=== PATIENT | female | born 1930 | race Caucasian/White ===

== ENCOUNTER 2020-01-14 21:00 | Observation (INO) | payer MEDICARE, BC ==
[2020-01-14] MEDS ORDERED: SODIUM CHLORIDE 0.9% 1,000 ML IV STA (21:10)
--- NOTE | 2020-01-14 21:11 | ED ---
Altered Mental Status HPI - General Stated Complaint: Confusion Time Seen by Provider: 01/14/20 21:07 Source: RN notes reviewed, old records reviewed, Caregiver Mode of arrival: EMS Limitations: altered mental status - History of Present Illness Initial Comments: This is a 9-year-old female recurrent DF for evaluation of increasing dementia altered mental status not acting appropriately difficulty at home with medications. Daughter states patient is not acting appropriately becoming more aggressive affect both her and her patient herself. Refusing to take medications, not acting appropriately. She appears to be getting progressively worse MD Complaint: altered mental status, confusion, other (agression) -: unknown Severity: moderate Consistency of Symptoms: waxing and waning, getting worse Context: history of similar presentation Associated Symptoms: denies other symptoms - Related Data Home Medications Medication Instructions Recorded Confirmed Aspirin EC [Ecotrin Low Dose] 81 mg PO HS 01/14/20 01/14/20 Atorvastatin [Lipitor] 40 mg PO Q48H 01/14/20 01/14/20 DULoxetine HCL [Cymbalta] 30 mg PO DAILY 01/14/20 01/14/20 Levothyroxine Sodium [Synthroid] 50 mcg PO DAILY 01/14/20 01/14/20 Omeprazole Magnesium [PriLOSEC OTC] 20 mg PO HS 01/14/20 01/14/20 Spironolactone 25 mg PO DAILY 01/14/20 01/14/20 Timolol 0.5% Ophth Soln [Timoptic 1 drop BOTH EYES DAILY 01/14/20 01/14/20 0.5% Ophth Soln] Tolterodine Tartrate [Detrol LA] 4 mg PO DAILY 01/14/20 01/14/20 acetaZOLAMIDE [Diamox] 125 mg PO DAILY 01/14/20 01/14/20 busPIRone HCl [Buspar] 5 mg PO BID 01/14/20 01/14/20 Melatonin 5 mg PO HS PRN 01/15/20 01/15/20 Previous Rx's Medication Instructions Recorded Donepezil [Aricept] 10 mg PO BID #60 tab 01/16/20 Memantine [Namenda] 5 mg PO BID #60 tab 01/16/20 Mirtazapine [Remeron] 7.5 mg PO HS #30 tab 01/16/20 risperiDONE 0.5 mg PO BID #60 tab 01/16/20 Allergies Allergy/AdvReac Type Severity Reaction Status Date / Time No Known Allergies Allergy Verified 01/14/20 23:10 Review of Systems ROS Statement: Those systems with pertinent positive or pertinent negative responses have been documented in the HPI. ROS Other: All systems not noted in ROS Statement are negative. Past Medical History - Past Family History Father Additional Family Medical History / Comment(s): Patient does not know her parents medical history. Brother(s) Additional Family Medical History / Comment(s): Patient has 2 brothers and 2 sisters. Patient denies any known medical problems. Daughter(s) Additional Family Medical History / Comment(s): Patient has 4 children. One daughter has hypertension and asthma. General Exam Limitations: altered mental status, physical limitation General appearance: alert, anxious Head exam: Present: atraumatic, normocephalic, normal inspection Eye exam: Present: normal appearance, PERRL, EOMI. Absent: scleral icterus, conjunctival injection, periorbital swelling ENT exam: Present: normal exam, mucous membranes moist Neck exam: Present: normal inspection. Absent: tenderness, meningismus, lymphadenopathy Respiratory exam: Present: normal lung sounds bilaterally. Absent: respiratory distress, wheezes, rales, rhonchi, stridor Cardiovascular Exam: Present: regular rate, normal rhythm, normal heart sounds. Absent: systolic murmur, diastolic murmur, rubs, gallop, clicks GI/Abdominal exam: Present: soft, normal bowel sounds. Absent: distended, tenderness, guarding, rebound, rigid Extremities exam: Present: normal inspection, full ROM, normal capillary refill. Absent: tenderness, pedal edema, joint swelling, calf tenderness Back exam: Present: normal inspection Neurological exam: Present: alert, oriented X3, CN II-XII intact Psychiatric exam: Present: normal affect, normal mood Skin exam: Present: warm, dry, intact, normal color. Absent: rash Course Vital Signs 01/14/20 01/15/20 01/15/20 21:07 02:58 06:30 Temperature 98.8 F Pulse Rate 86 77 67 Respiratory 16 18 18 Rate Blood Pressure 131/68 152/64 154/71 O2 Sat by Pulse 94 L 96 95 Oximetry 01/15/20 01/15/20 07:56 11:00 Temperature Pulse Rate 70 70 Respiratory 20 19 Rate Blood Pressure 150/66 139/67 O2 Sat by Pulse 94 L 97 Oximetry - Reevaluation(s) Reevaluation #1: Medical records reviewed Spoke with daughter. Daughter at length, daughter states she's having difficulty taking care of patient should becoming aggressive and agitated Patient she continued is denies complaint, does not want hospital admission Medical Decision Making - Medical Decision Making 89 female DF for evaluation of altered mental state. Patient sent into the ER by family doctor for admission regarding advanced dementia, altered mental status - Lab Data Result diagrams: 01/14/20 21:35 01/14/20 21:35 Lab Results 01/14/20 01/14/20 01/14/20 Range/Units 21:35 21:35 21:35 WBC 8.2 (3.8-10.6) k/uL RBC 5.07 (3.80-5.40) m/uL Hgb 13.5 (11.4-16.0) gm/dL Hct 42.4 (34.0-46.0) % MCV 83.6 (80.0-100.0) fL MCH 26.6 (25.0-35.0) pg MCHC 31.9 (31.0-37.0) g/dL RDW 13.7 (11.5-15.5) % Plt Count 256 (150-450) k/uL Neutrophils % 68 % Lymphocytes % 21 % Monocytes % 5 % Eosinophils % 4 % Basophils % 1 % Neutrophils # 5.6 (1.3-7.7) k/uL Lymphocytes # 1.7 (1.0-4.8) k/uL Monocytes # 0.4 (0-1.0) k/uL Eosinophils # 0.3 (0-0.7) k/uL Basophils # 0.1 (0-0.2) k/uL PT 10.9 (9.0-12.0) sec INR 1.1 (<1.2) APTT 22.9 (22.0-30.0) sec Sodium 139 (137-145) mmol/L Potassium 3.7 (3.5-5.1) mmol/L Chloride 109 H (98-107) mmol/L Carbon Dioxide 22 (22-30) mmol/L Anion Gap 8 mmol/L BUN 18 H (7-17) mg/dL Creatinine 0.74 (0.52-1.04) mg/dL Est GFR (CKD-EPI)AfAm 84 (>60 ml/min/1.73 sqM) Est GFR (CKD-EPI)NonAf 73 (>60 ml/min/1.73 sqM) Glucose 101 H (74-99) mg/dL Plasma Lactic Acid Kevin (0.7-2.0) mmol/L Calcium 9.6 (8.4-10.2) mg/dL Phosphorus 3.3 (2.5-4.5) mg/dL Magnesium 1.9 (1.6-2.3) mg/dL Total Bilirubin 0.8 (0.2-1.3) mg/dL AST 48 H (14-36) U/L ALT 18 (4-34) U/L Alkaline Phosphatase 120 (38-126) U/L Ammonia (<30) umol/L CK-MB (CK-2) (0.0-2.4) ng/mL Troponin I (0.000-0.034) ng/mL NT-Pro-B Natriuret Pep pg/mL Total Protein 6.4 (6.3-8.2) g/dL Albumin 4.0 (3.5-5.0) g/dL TSH (0.465-4.680) mIU/L 01/14/20 01/14/20 01/14/20 Range/Units 21:35 21:35 21:35 WBC (3.8-10.6) k/uL RBC (3.80-5.40) m/uL Hgb (11.4-16.0) gm/dL Hct (34.0-46.0) % MCV (80.0-100.0) fL MCH (25.0-35.0) pg MCHC (31.0-37.0) g/dL RDW (11.5-15.5) % Plt Count (150-450) k/uL Neutrophils % % Lymphocytes % % Monocytes % % Eosinophils % % Basophils % % Neutrophils # (1.3-7.7) k/uL Lymphocytes # (1.0-4.8) k/uL Monocytes # (0-1.0) k/uL Eosinophils # (0-0.7) k/uL Basophils # (0-0.2) k/uL PT (9.0-12.0) sec INR (<1.2) APTT (22.0-30.0) sec Sodium (137-145) mmol/L Potassium (3.5-5.1) mmol/L Chloride (98-107) mmol/L Carbon Dioxide (22-30) mmol/L Anion Gap mmol/L BUN (7-17) mg/dL Creatinine (0.52-1.04) mg/dL Est GFR (CKD-EPI)AfAm (>60 ml/min/1.73 sqM) Est GFR (CKD-EPI)NonAf (>60 ml/min/1.73 sqM) Glucose (74-99) mg/dL Plasma Lactic Acid Kevin 0.8 (0.7-2.0) mmol/L Calcium (8.4-10.2) mg/dL Phosphorus (2.5-4.5) mg/dL Magnesium (1.6-2.3) mg/dL Total Bilirubin (0.2-1.3) mg/dL AST (14-36) U/L ALT (4-34) U/L Alkaline Phosphatase (38-126) U/L Ammonia 10 (<30) umol/L CK-MB (CK-2) 5.9 H (0.0-2.4) ng/mL Troponin I 0.014 (0.000-0.034) ng/mL NT-Pro-B Natriuret Pep 224 pg/mL Total Protein (6.3-8.2) g/dL Albumin (3.5-5.0) g/dL TSH (0.465-4.680) mIU/L 01/14/20 Range/Units 21:35 WBC (3.8-10.6) k/uL RBC (3.80-5.40) m/uL Hgb (11.4-16.0) gm/dL Hct (34.0-46.0) % MCV (80.0-100.0) fL MCH (25.0-35.0) pg MCHC (31.0-37.0) g/dL RDW (11.5-15.5) % Plt Count (150-450) k/uL Neutrophils % % Lymphocytes % % Monocytes % % Eosinophils % % Basophils % % Neutrophils # (1.3-7.7) k/uL Lymphocytes # (1.0-4.8) k/uL Monocytes # (0-1.0) k/uL Eosinophils # (0-0.7) k/uL Basophils # (0-0.2) k/uL PT (9.0-12.0) sec INR (<1.2) APTT (22.0-30.0) sec Sodium (137-145) mmol/L Potassium (3.5-5.1) mmol/L Chloride (98-107) mmol/L Carbon Dioxide (22-30) mmol/L Anion Gap mmol/L BUN (7-17) mg/dL Creatinine (0.52-1.04) mg/dL Est GFR (CKD-EPI)AfAm (>60 ml/min/1.73 sqM) Est GFR (CKD-EPI)NonAf (>60 ml/min/1.73 sqM) Glucose (74-99) mg/dL Plasma Lactic Acid Kevin (0.7-2.0) mmol/L Calcium (8.4-10.2) mg/dL Phosphorus (2.5-4.5) mg/dL Magnesium (1.6-2.3) mg/dL Total Bilirubin (0.2-1.3) mg/dL AST (14-36) U/L ALT (4-34) U/L Alkaline Phosphatase (38-126) U/L Ammonia (<30) umol/L CK-MB (CK-2) (0.0-2.4) ng/mL Troponin I (0.000-0.034) ng/mL NT-Pro-B Natriuret Pep pg/mL Total Protein (6.3-8.2) g/dL Albumin (3.5-5.0) g/dL TSH 0.644 (0.465-4.680) mIU/L - EKG Data -: EKG Interpreted by Me (EKG is normal sinus a rate of 88 by mouth once a day QRS 84 QTc 442) - Radiology Data Radiology results: report reviewed (CT brain chest x-ray negative for acute disease), image reviewed Disposition Clinical Impression: Altered mental state, Dementia Disposition: ADMITTED IP TO THIS [facility] Condition: Good Is patient prescribed a controlled substance at d/c from ED?: No
[2020-01-14 21:45] LABS: Basophils # (A) 0.1 k/uL (0-0.2); Basophils % (A) 1 %; Eosinophils # (A) 0.3 k/uL (0-0.7); Eosinophils % (A) 4 %; HCT 42.4 % (34.0-46.0); HGB 13.5 gm/dL (11.4-16.0); Lymphocytes # (A) 1.7 k/uL (1.0-4.8); Lymphocytes % (A) 21 %; MCH 26.6 pg (25.0-35.0); MCHC 31.9 g/dL (31.0-37.0); MCV 83.6 fL (80.0-100.0); Mean Platelet Volume 7.9; Monocytes # (A) 0.4 k/uL (0-1.0); Monocytes % (A) 5 %; Neutrophils # (A) 5.6 k/uL (1.3-7.7); Neutrophils % (A) 68 %; Platelet Count 256 k/uL (150-450); RBC 5.07 m/uL (3.80-5.40); RDW 13.7 % (11.5-15.5); WBC 8.2 k/uL (3.8-10.6)
[2020-01-14 21:52] LABS: Lactic Acid, Venous 0.8 mmol/L (0.7-2.0)
[2020-01-14 21:53] LABS: INR 1.1 (<1.2); Partial Thromboplastin Time 22.9 sec (22.0-30.0); Prothrombin Time 10.9 sec (9.0-12.0)
[2020-01-14 21:54] LABS: Calcium 9.6 mg/dL (8.4-10.2); Magnesium 1.9 mg/dL (1.6-2.3); Phosphorus 3.3 mg/dL (2.5-4.5); Potassium 3.7 mmol/L (3.5-5.1); Total Bilirubin 0.8 mg/dL (0.2-1.3); Total Protein 6.4 g/dL (6.3-8.2)
[2020-01-14 22:16] LABS: Creatine Kinase MB 5.9 ng/mL (0.0-2.4); Troponin I 0.014 ng/mL (0.000-0.034)
--- NOTE | 2020-01-14 22:43 | CT ---
EXAMINATION TYPE: CT brain wo con DATE OF EXAM: 01/14/2020 COMPARISON: None HISTORY: AMS, weakness. Hx dementia CT DLP: 1068.4 mGycm Automated exposure control for dose reduction was used. There is cerebral cortical atrophy. There is no mass effect nor midline shift. There is no sign of in tracranial hemorrhage. Calvarium is intact. Temporal bones are intact. There is mild enlargement of t he ventricles. There is hyperostosis frontalis. IMPRESSION: Cerebral atrophy. No acute intracranial abnormality.
--- NOTE | 2020-01-14 22:44 | XR ---
EXAMINATION TYPE: XR chest 2V DATE OF EXAM: 01/14/2020 COMPARISON: NONE HISTORY: Weakness TECHNIQUE: 2 views FINDINGS: Heart is normal. Thoracic aorta is atheromatous. Lungs are clear of infiltrate. There is no heart failure. There is no pleural effusion. Bony thorax appears intact. There is some arthritic marcus nge in the shoulder joints. IMPRESSION: No active cardiopulmonary disease. Normal heart.
[2020-01-14] MEDS ORDERED: cefTRIAXone IN SWFI 1,000 MG/10 ML SYRINGE IVP STA (22:50)
[2020-01-14] MEDS ORDERED: LORazepam 2 MG/ML INJ IV STA (22:52)
[2020-01-14] MEDS ORDERED: LORazepam 2 MG/ML INJ IV PRN (22:52)
[2020-01-14] MEDS ORDERED: SODIUM CHLORIDE 0.9% 1,000 ML IV ONE (22:52)
[2020-01-14 23:14] LABS: Appearance,Urine Clear (Clear); Bilirubin,Urine Negative (Negative); Blood,Urine Negative (Negative); Color,Urine Yellow; Glucose,Urine (UA) Negative (Negative); Ketones,Urine 2+ (Negative); Leukocyte Esterase,Urine Negative (Negative); Nitrite,Urine Negative (Negative); PH, Urine 5.5 (5.0-8.0); Protein,Urine Trace (Negative); Urobilinogen,Urine <2.0 mg/dL (<2.0)
[2020-01-15] MEDS: acetaZOLAMIDE 250 MG TAB PO SCH (09:51)
[2020-01-15] MEDS: risperiDONE 0.5 MG TAB PO SCH ×2 (09:51→21:45)
[2020-01-15] MEDS: ATORVASTATIN 40 MG TAB PO SCH (09:52)
[2020-01-15] MEDS: OXYBUTYNIN 10 MG TAB.ER.24 PO SCH (09:52)
[2020-01-15] MEDS: DONEPEZIL 10 MG TAB PO SCH ×2 (09:53→21:45)
[2020-01-15] MEDS: SPIRONOLACTONE 25 MG TAB PO SCH (09:53)
[2020-01-15] MEDS: DULoxetine HCL 30 MG CAPSULE.DR PO SCH (09:53)
[2020-01-15] MEDS: busPIRone HCl 5 MG TAB PO SCH ×2 (09:54→21:45)
[2020-01-15] MEDS: TIMOLOL 0.5% OPHTH DROPS 5 ML BTL BOTH EYES SCH (09:55)
[2020-01-15] MEDS: MEMANTINE 5 MG TAB PO SCH ×2 (10:39→21:45)
--- NOTE | 2020-01-15 10:40 | P.HPIM ---
History of Present Illness H&P Date: 01/15/20 Chief Complaint: Confusion History of Present Illness This is an 89-year-old female patient of Dr. Adkins with past medical history of hyperlipidemia, hypothyroidism, TIA, memory loss, chronic kidney disease stage II, generalized osteoarthritis, urinary incontinence, recurrent urinary tract infections, mild COPD. Patient is currently residing at [facility] and has been refusing to take her medications for a couple of days. She does have paid caregivers and patient is stating that they are not staying with her that they're going outside and meeting someone. Patient was brought into [facility] emergency center for evaluation. CAT scan of the brain showed no acute intracranial abnormality. Chest x-ray showed no acute cardio pulmonary disease. Initial vital signs revealed blood pressure 131/68, heart rate 86, pulse ox 94% on room air, afebrile. CBC was unremarkable. CMP showed a chloride 109, BUN 18 and creatinine 0.74, blood sugar 101. AST 48. Lactic acid 0.8, ammonia level X, troponin 0.014. ProBNP 224. EKG was a sinus rhythm with no acute changes. Patient is seen today in the emergency center with plan to admit to the [facility] floor. Aricept has been increased frequency to twice daily and Namenda added. Neurology consult. Review of Systems Constitutional: No fever, no chills, no night sweats. No weight change. Reports weakness, fatigue or lethargy. No daytime sleepiness. EENT: No headache. No blurred vision or double vision, no loss of vision. No loss of Hearing, no ringing in the ears, no dizziness. No nasal drainage or congestion. No epistaxis. No sore throat. Lungs: No shortness of breath, cough, no sputum production. No wheezing. Cardiovascular: No chest pain, no lower extremity edema. No palpitations. No paroxysmal nocturnal dyspnea. No orthopnea. No lightheadedness or dizziness. No syncopal episodes. Abdominal: No abdominal pain. No nausea, vomiting. No diarrhea. No constipation. No bloody or tarry stools.. No loss of appetite. Genitourinary: No dysuria, increased frequency, urgency. No urinary retention. Musculoskeletal: No myalgias. Reports muscle weakness, no gait dysfunction, no frequent falls. No back pain. No neck pain. Integumentary: No wounds, no lesions. No rash or pruritus. No unusual bruising. No change in hair or nails. Neurologic: No aphasia. No facial droop. Reports change in mentation. No head injury. No headache. No paralysis. No paresthesia. Psychiatric: No depression. Appears anxiety. No mood swings. Endocrine: No abnormal blood sugars. Physical Examination Gen: This is an 89-year-old female. Patient is on the ER stretcher and appears to be comfortable and in no acute distress. HEENT: Head is atraumatic, normocephalic. Pupils equal, round. Sclerae is anicteric. NECK: Supple. No JVD. No lymphadenopathy. No thyromegaly. LUNGS: Clear to auscultation. No wheezes or rhonchi. No intercostal retractions. HEART: Regular rate and rhythm. No murmur. ABDOMEN: Soft. Bowel sounds are present. No masses. No tenderness. EXTREMITIES: No pedal edema. No calf tenderness. NEUROLOGICAL: Patient is awake, alert and oriented to person and place. Cranial nerves 2 through 12 are grossly intact. Assessment and Plan 1. Metabolic encephalopathy most likely secondary to worsening dementia and noncompliance with medication regime. Consult with neurology. 2. Dementia, most likely Alzheimer's type. Continue Aricept increased to 10 mg twice daily, Namenda 5 mg twice daily. 3. Recurrent depression and generalized anxiety disorder. Continue BuSpar 5 mg twice daily, Cymbalta 10 mg daily, Risperdal 0.5 mg twice daily. 4. Glaucoma. Continue Diamox and eyedrops. 5. Overactive bladder. Continue oxybutynin 10 mg daily. 6. Hypothyroidism. Check TSH and free T4. Continue levothyroxine 50 g daily. 7. DVT prophylaxis. JANAE hose, heparin subcu. 8. GI prophylaxis. Protonix. 9. Generalized debility. PT and OT consults. 10. COVID-19 infection not present. Patient will be admitted to the hospital for a minimum of 2 night stay. Discharge plan: To be determined. Consult with social work. Impression and plan of care have been directed as dictated by the signing physician. Fatimah Guzman nurse practitioner acting as scribe for signing physician. Past Medical History Past Medical History: Dementia, Hyperlipidemia, Thyroid Disorder History of Any Multi-Drug Resistant Organisms: None Reported Past Psychological History: No Psychological Hx Reported Smoking Status: Former smoker Past Alcohol Use History: None Reported Additional Past Alcohol Use History / Comment(s): Patient was a smoker and quit approximately 10 years ago. No illicit drug use, marijuana use or alcohol use. Patient is currently residing at [facility]. Past Drug Use History: None Reported - Past Family History Father Additional Family Medical History / Comment(s): Patient does not know her parents medical history. Brother(s) Additional Family Medical History / Comment(s): Patient has 2 brothers and 2 sisters. Patient denies any known medical problems. Daughter(s) Additional Family Medical History / Comment(s): Patient has 4 children. One daughter has hypertension and asthma. Medications and Allergies Home Medications Medication Instructions Recorded Confirmed Type Aspirin EC [Ecotrin Low Dose] 81 mg PO HS 01/14/20 01/14/20 History Atorvastatin [Lipitor] 40 mg PO Q48H 01/14/20 01/14/20 History DULoxetine HCL [Cymbalta] 30 mg PO DAILY 01/14/20 01/14/20 History Donepezil [Aricept] 10 mg PO HS 01/14/20 01/14/20 History Levothyroxine Sodium [Synthroid] 50 mcg PO DAILY 01/14/20 01/14/20 History Omeprazole Magnesium [PriLOSEC OTC] 20 mg PO HS 01/14/20 01/14/20 History Spironolactone 25 mg PO DAILY 01/14/20 01/14/20 History Timolol 0.5% Ophth Soln [Timoptic 1 drop BOTH EYES DAILY 01/14/20 01/14/20 History 0.5% Ophth Soln] Tolterodine Tartrate [Detrol LA] 4 mg PO DAILY 01/14/20 01/14/20 History acetaZOLAMIDE [Diamox] 125 mg PO DAILY 01/14/20 01/14/20 History busPIRone HCl [Buspar] 5 mg PO BID 01/14/20 01/14/20 History risperiDONE 0.5 mg PO BID 01/14/20 01/14/20 History Allergies Allergy/AdvReac Type Severity Reaction Status Date / Time No Known Allergies Allergy Verified 01/14/20 23:10 Physical Exam Vitals: Vital Signs Temp Pulse Resp BP Pulse Ox 01/15/20 06:30 67 18 154/71 95 01/15/20 02:58 77 18 152/64 96 01/14/20 21:07 98.8 F 86 16 131/68 94 L Intake and Output 01/14/20 01/15/20 01/15/20 22:59 06:59 14:59 Other: Weight 61.598 kg Results CBC & Chem 7: 01/14/20 21:35 01/14/20 21:35 Labs: Abnormal Lab Results - Last 24 Hours (Table) 01/14/20 01/14/20 01/14/20 Range/Units 21:35 21:35 23:06 Chloride 109 H (98-107) mmol/L BUN 18 H (7-17) mg/dL Glucose 101 H (74-99) mg/dL AST 48 H (14-36) U/L CK-MB (CK-2) 5.9 H (0.0-2.4) ng/mL Urine Protein Trace H (Negative) Urine Ketones 2+ H (Negative) Thrombosis Risk Factor Assmnt - DVT/VTE Prophylaxis DVT/VTE Prophylaxis: Pharmacologic Prophylaxis ordered, Mechanical Prophylaxis ordered - Choose All That Apply Each Risk Factor Represents 3 Points: Age 75 years or older Thrombosis Risk Factor Assessment Total Risk Factor Score: 3 Thrombosis Risk Factor Assessment Level: Moderate Risk
--- NOTE | 2020-01-15 20:12 | P.CNNES ---
History of Present Illness Consult date: 01/15/20 Requesting physician: Fatimah Guzman Reason for Consult: mental status change History of Present Illness: history was obtained by medical record as well as patient's shelter. this is a 89-year-old female with history of TIA, severe dementia, chronic kidney disease stage II, hyperlipidemia, hypothyroidism, recurrent urinary tract infection and urinary incontinence. She is brought to [facility] for evaluation of confusion. Patient is currently staying at [facility] and she is refusing to take medication for a couple days. I called [facility] and I spoke with Gisela Fuentes that takes care of the patient and she states that the patient the last 1-2 weeks she's been having fluctuation of basically refusing to eat, want people to leave that basically her room, accusing people of that they stick in her money, refusing to take her medication. Her symptoms are worse at night but they fluctuate throughout the day. She hasn't been sleeping well. She is not sure what medication has been adjusted recently by her doctor. she uses a walker to walk and that she is unstable walking that's c hronic. She is able to feed herself she's able to use the bathroom on her own. in the ED the CT of the head was done and that it's reported as a cerebral atrophy. No acute intracranial abnormality. Chest x-ray no acute cardiopulmonary disease. EKG was normal sinus rhythm ventricle rate of 88. her initial temperature is 98.8 Fahrenheit. Initial blood pressure is 154/71. active medication etc. currently she is on she is on aspirin 81 Aricept 10 mg, amantadine 5 mg, Risperidone 0.5 mg bid Review of Systems the pertinent positive and negative per HPI. Past Medical History Past Medical History: Dementia, Hyperlipidemia, Thyroid Disorder Additional Past Medical History / Comment(s): dementia History of Any Multi-Drug Resistant Organisms: None Reported Additional Past Surgical History / Comment(s): Patients daughter states she had eye surgery for glaucoma Past Anesthesia/Blood Transfusion Reactions: No Reported Reaction Smoking Status: Former smoker - Past Family History Father Additional Family Medical History / Comment(s): Patient does not know her parents medical history. Brother(s) Additional Family Medical History / Comment(s): Patient has 2 brothers and 2 sisters. Patient denies any known medical problems. Daughter(s) Additional Family Medical History / Comment(s): Patient has 4 children. One daughter has hypertension and asthma. Medications and Allergies Home Medications Medication Instructions Recorded Confirmed Type Aspirin EC [Ecotrin Low Dose] 81 mg PO HS 01/14/20 01/14/20 History Atorvastatin [Lipitor] 40 mg PO Q48H 01/14/20 01/14/20 History DULoxetine HCL [Cymbalta] 30 mg PO DAILY 01/14/20 01/14/20 History Donepezil [Aricept] 10 mg PO HS 01/14/20 01/14/20 History Levothyroxine Sodium [Synthroid] 50 mcg PO DAILY 01/14/20 01/14/20 History Omeprazole Magnesium [PriLOSEC OTC] 20 mg PO HS 01/14/20 01/14/20 History Spironolactone 25 mg PO DAILY 01/14/20 01/14/20 History Timolol 0.5% Ophth Soln [Timoptic 1 drop BOTH EYES DAILY 01/14/20 01/14/20 History 0.5% Ophth Soln] Tolterodine Tartrate [Detrol LA] 4 mg PO DAILY 01/14/20 01/14/20 History acetaZOLAMIDE [Diamox] 125 mg PO DAILY 01/14/20 01/14/20 History busPIRone HCl [Buspar] 5 mg PO BID 01/14/20 01/14/20 History risperiDONE 0.5 mg PO BID 01/14/20 01/14/20 History Melatonin 5 mg PO HS PRN 01/15/20 01/15/20 History Allergies Allergy/AdvReac Type Severity Reaction Status Date / Time No Known Allergies Allergy Verified 01/14/20 23:10 Physical Examination - Vital Signs Vital Signs: Vital Signs Temp Pulse Pulse Resp BP BP Pulse Ox 01/15/20 13:53 96.6 F L 62 16 184/77 01/15/20 12:15 98.3 F 62 18 159/83 94 L 01/15/20 11:00 70 19 139/67 97 01/15/20 07:56 70 20 150/66 94 L 01/15/20 06:30 67 18 154/71 95 01/15/20 02:58 77 18 152/64 96 01/14/20 21:07 98.8 F 86 16 131/68 94 L Intake and Output 01/15/20 01/15/20 01/15/20 06:59 14:59 22:59 Intake Total 760 Balance 760 Intake: Intake, IV Titration 700 Amount Sodium Chloride 0.9% 1, 700 000 ml @ 100 mls/hr IV . Q10H ONE Rx#:[id number] Oral 60 Other: # Voids 1 1 # Bowel Movements 1 1 Weight 61.598 kg GENERAL: The patient is sitting in a chair comfortably and does not seem in distress. CHEST: The heart rate is regular rate rhythm. No murmurs to auscultation. No carotid bruit bilaterally. LUNG: Clear to auscultation bilaterally no wheezing noted throughout. Not labored breathing. ABDOMEN/GI: Bowel sounds present in all 4 quadrants. No tenderness to palpation throughout. NEUROLOGICAL: Higher mental function: The patient is awake, alert, oriented to self, oriented to month but not year and knew current state she resides in. She was able to name objects correctly. Patient is following simple commands. No aphasia and no neglect. Cranial nerves: The pupils are round, equal and reactive to light and accommodation. Visual mariscal are full to confrontation throughout. Extraocular movement is intact no nystagmus is noted. Facial sensation is normal to touch throughout. The facial strength is normal throughout. Hearing is normal to hand rub. Tongue is midline and moved [id number] without any difficulty. No dysarthria is noted. Shoulder shrug is normal bilaterally. Motor: Gait is defered. The strength is 5 over 5 throughout. Normal tone and bulk. Cerebellum: Normal finger to nose heel to chin bilaterally. Reflexes (right/left): 2+ throughout except at ankles 1+ bilaterally. Plantars are downgoing bilaterally. Results they UA was done and doesn't show any sign of UTI. TSH was 0.644. His ammonia is 10. Is AST is 48 ALTs 18. - Laboratory Findings CBC and BMP: 01/14/20 21:35 01/14/20 21:35 Abnormal Lab Findings: Abnormal Labs 01/14/20 01/14/20 01/14/20 21:35 21:35 23:06 Chloride 109 H BUN 18 H Glucose 101 H AST 48 H CK-MB (CK-2) 5.9 H Urine Protein Trace H Urine Ketones 2+ H Assessment and Plan Assessment: This is a 89-year-old female with history of TIA, severe dementia, chronic kidney disease stage II, hyperlipidemia, hypothyroidism, recurrent urinary tract infection and urinary incontinence. She is brought to [facility] for evaluation of confusion. Patient is currently staying at [facility] and she is refusing to take medication for a couple days. For the last 1-2 weeks she's been having fluctuation of basically refusing to eat, want people to leave that basically her room, accusing people of that they stick in her money, refusing to take her medication. Her symptoms are worse at night but they fluctuate throughout the day. She hasn't been sleeping well. Dementia with psychosis behavior (So far no infection was source of her behavior). Chronic dementia CKD Hyperlipidemia Plan: -Ordered melatonin 6mg daily. -Currently she is on Risperdone 0.5mg bid. If continue to be agitated can consider starting Seroquel 25mg 1 tab daily for 1 week then 1 tab bid and discontinue Risperdone. -Avoid Ativan as much as possible. -Since she is having fluctuation in the morning and at night and it's worse at night seems more delirium. Therefore recommend having a sitter in the room lights turned off at night and room being quiet. Otherwise from a neurology perspective no additional testing is needed Thanks for the consult, Jcarlos Rizzo MD Neuro-hospitalist. Time with Patient: Greater than 30
[2020-01-15] MEDS ORDERED: DONEPEZIL 10 MG TAB PO SCH (21:00)
[2020-01-15] MEDS: MELATONIN 3 MG TABLET PO SCH (21:46)
[2020-01-15] MEDS: PANTOPRAZOLE 40 MG TABLET PO SCH (21:46)
[2020-01-15] MEDS: HEPARIN SODIUM,PORCINE 5,000 UNIT/ML 1 ML VIAL SQ SCH (21:46)
[2020-01-15] MEDS: ASPIRIN 81 MG PO SCH (21:46)
[2020-01-16] MEDS: busPIRone HCl 5 MG TAB PO SCH ×2 (08:18→22:02)
[2020-01-16] MEDS: DULoxetine HCL 30 MG CAPSULE.DR PO SCH (08:18)
[2020-01-16] MEDS: LEVOTHYROXINE 50 MCG TAB PO SCH (08:18)
[2020-01-16] MEDS: HEPARIN SODIUM,PORCINE 5,000 UNIT/ML 1 ML VIAL SQ SCH ×2 (08:18→21:26)
[2020-01-16] MEDS: MEMANTINE 5 MG TAB PO SCH ×2 (08:19→21:26)
[2020-01-16] MEDS: DONEPEZIL 10 MG TAB PO SCH ×2 (08:19→21:25)
[2020-01-16] MEDS: acetaZOLAMIDE 250 MG TAB PO SCH (08:19)
[2020-01-16] MEDS: SPIRONOLACTONE 25 MG TAB PO SCH (08:19)
[2020-01-16] MEDS: OXYBUTYNIN 10 MG TAB.ER.24 PO SCH (08:20)
[2020-01-16] MEDS: risperiDONE 0.5 MG TAB PO SCH ×2 (08:20→21:25)
[2020-01-16] MEDS: TIMOLOL 0.5% OPHTH DROPS 5 ML BTL BOTH EYES SCH (10:15)
[2020-01-16 11:41] VITALS: RESP 18
--- NOTE | 2020-01-16 12:04 | P.PN ---
Subjective Progress Note Date: 01/16/20 History of Present Illness This is an 89-year-old female patient of Dr. Adkins with past medical history of hyperlipidemia, hypothyroidism, TIA, memory loss, chronic kidney disease stage II, generalized osteoarthritis, urinary incontinence, recurrent urinary tract infections, mild COPD. Patient is currently residing at [facility] and has been refusing to take her medications for a couple of days. She does have paid caregivers and patient is stating that they are not staying with her that they're going outside and meeting someone. Patient was brought into [facility] emergency center for evaluation. CAT scan of the brain showed no acute intracranial abnormality. Chest x-ray showed no acute cardio pulmonary disease. Initial vital signs revealed blood pressure 131/68, heart rate 86, pulse ox 94% on room air, afebrile. CBC was unremarkable. CMP showed a chloride 109, BUN 18 and creatinine 0.74, blood sugar 101. AST 48. Lactic acid 0.8, ammonia level X, troponin 0.014. ProBNP 224. EKG was a sinus rhythm with no acute changes. Patient is seen today in the emergency center with plan to admit to the MedSur floor. Aricept has been increased frequency to twice daily and Namenda added. Neurology consult. 01/14: Patient is seen in follow-up today. She is sleeping at the time of evaluation. She had no issues overnight other than sound hours. She has been started on Namenda as a new medication, increased Aricept frequency. Discussed discharge planning with the patient's daughter who is her POA, she is agreeable to take the patient home for now and told bed opens up at the memory care unit at [facility]. She will plan to increase care so he patient has 24-hour supervision. She also relates the patient has had no appetite and Remeron ordered. Prescriptions have been sent to her pharmacy today so daughter can pick those up early. Plan is to monitor overnight and discharge tomorrow. Review of Systems Constitutional: No fever, no chills, no night sweats. No weight change. Reports weakness, fatigue or lethargy. No daytime sleepiness. EENT: No headache. No blurred vision or double vision, no loss of vision. No loss of Hearing, no ringing in the ears, no dizziness. No nasal drainage or congestion. No epistaxis. No sore throat. Lungs: No shortness of breath, cough, no sputum production. No wheezing. Cardiovascular: No chest pain, no lower extremity edema. No palpitations. No paroxysmal nocturnal dyspnea. No orthopnea. No lightheadedness or dizziness. No syncopal episodes. Abdominal: No abdominal pain. No nausea, vomiting. No diarrhea. No constipation. No bloody or tarry stools. Reports loss of appetite. Reports incontinence. Genitourinary: No dysuria, increased frequency, urgency. No urinary retention. Reports incontinence. Musculoskeletal: No myalgias. Reports muscle weakness, no gait dysfunction, no frequent falls. No back pain. No neck pain. Integumentary: No wounds, no lesions. No rash or pruritus. No unusual brui sing. No change in hair or nails. Neurologic: No aphasia. No facial droop. Reports change in mentation. No head injury. No headache. No paralysis. No paresthesia. Psychiatric: No depression. Appears anxiety. No mood swings. Endocrine: No abnormal blood sugars. Physical Examination Gen: This is an 89-year-old female. Patient is sleeping in bed and appears to be comfortable and in no acute distress. HEENT: Head is atraumatic, normocephalic. Pupils equal, round. Sclerae is anicteric. NECK: Supple. No JVD. No lymphadenopathy. No thyromegaly. LUNGS: Clear to auscultation. No wheezes or rhonchi. No intercostal retractions. HEART: Regular rate and rhythm. No murmur. ABDOMEN: Soft. Bowel sounds are present. No masses. No tenderness. EXTREMITIES: No pedal edema. No calf tenderness. NEUROLOGICAL: Patient is sleeping. Cranial nerves 2 through 12 are grossly intact. Assessment and Plan 1. Metabolic encephalopathy most likely secondary to worsening dementia and noncompliance with medication regime. Consult with neurology. 2. Dementia, most likely Alzheimer's type. Continue Aricept increased to 10 mg twice daily, Namenda 5 mg twice daily. Remeron added for appetite. 3. Recurrent depression and generalized anxiety disorder. Continue BuSpar 5 mg twice daily, Cymbalta 10 mg daily, Risperdal 0.5 mg twice daily. 4. Glaucoma. Continue Diamox and eyedrops. 5. Overactive bladder. Continue oxybutynin 10 mg daily. 6. Hypothyroidism. Check TSH and free T4. Continue levothyroxine 50 g daily. 7. DVT prophylaxis. JANAE hose, heparin subcu. 8. GI prophylaxis. Protonix. 9. Generalized debility. PT and OT consults. 10. COVID-19 infection not present. Discharge plan: Return to [facility] tomorrow with plan for memory care unit once bed available.. Impression and plan of care have been directed as dictated by the signing physician. Fatimah Guzman nurse practitioner acting as scribe for signing physician. Objective - Vital Signs Vital signs: Vital Signs Temp 98.1 F 01/16/20 11:21 Pulse 54 L 01/16/20 11:21 Resp 18 01/16/20 11:21 BP 137/77 01/16/20 11:21 Pulse Ox 97 01/16/20 11:21 Intake & Output 01/15/20 01/16/20 01/16/20 18:59 06:59 18:59 Intake Total 760 120 Balance 760 120 Weight 61.598 kg Intake: Intake, IV Titration 700 Amount Sodium Chloride 0.9% 1, 700 000 ml @ 100 mls/hr IV . Q10H ONE Rx#:[id number] Oral 60 120 Other: # Voids 1 2 1 # Bowel Movements 1 0 - Labs CBC & Chem 7: 01/14/20 21:35 01/14/20 21:35
[2020-01-16] MEDS ORDERED: MIRTAZAPINE 15 MG TAB PO SCH (21:00)
[2020-01-16] MEDS: ASPIRIN 81 MG PO SCH (21:25)
[2020-01-16] MEDS: MELATONIN 3 MG TABLET PO SCH (21:25)
[2020-01-16] MEDS: PANTOPRAZOLE 40 MG TABLET PO SCH (21:26)
[2020-01-17 05:37] VITALS: BP 143/78; PULSE 54; TEMP 97.1
[2020-01-17] MEDS: LEVOTHYROXINE 50 MCG TAB PO SCH (05:53)
[2020-01-17] MEDS: busPIRone HCl 5 MG TAB PO SCH (08:27)
[2020-01-17] MEDS: SPIRONOLACTONE 25 MG TAB PO SCH (08:27)
[2020-01-17] MEDS: DONEPEZIL 10 MG TAB PO SCH (08:27)
[2020-01-17] MEDS: DULoxetine HCL 30 MG CAPSULE.DR PO SCH (08:27)
[2020-01-17] MEDS: ATORVASTATIN 40 MG TAB PO SCH (08:27)
[2020-01-17] MEDS: HEPARIN SODIUM,PORCINE 5,000 UNIT/ML 1 ML VIAL SQ SCH (08:27)
[2020-01-17] MEDS: acetaZOLAMIDE 250 MG TAB PO SCH (08:28)
[2020-01-17] MEDS: OXYBUTYNIN 10 MG TAB.ER.24 PO SCH (08:28)
[2020-01-17] MEDS: risperiDONE 0.5 MG TAB PO SCH (08:28)
[2020-01-17] MEDS: MEMANTINE 5 MG TAB PO SCH (08:28)
[2020-01-17] MEDS: TIMOLOL 0.5% OPHTH DROPS 5 ML BTL BOTH EYES SCH (08:29)
--- NOTE | 2020-01-17 11:46 | P.DS ---
Providers Date of admission: 01/14/20 22:52 Expected date of discharge: 01/17/20 Attending physician: Milton Adkins Consults: 01/15/20 08:07 Consult Physician Routine Consulting Provider: Jcarlos Rizzo Consult Reason/Comments: mental status changes Do you want consulting provider notified?: Yes Primary care physician: Milton Adkins [facility] Course: History of Present Illness This is an 89-year-old female patient of Dr. Adkins with past medical history of hyperlipidemia, hypothyroidism, TIA, memory loss, chronic kidney disease stage II, generalized osteoarthritis, urinary incontinence, recurrent urinary tract infections, mild COPD. Patient is currently residing at [facility] and has been refusing to take her medications for a couple of days. She does have paid caregivers and patient is stating that they are not staying with her that they're going outside and meeting someone. Patient was brought into [facility] emergency center for evaluation. CAT scan of the brain showed no acute intracranial abnormality. Chest x-ray showed no acute cardio pulmonary disease. Initial vital signs revealed blood pressure 131/68, heart rate 86, pulse ox 94% on room air, afebrile. CBC was unremarkable. CMP showed a chloride 109, BUN 18 and creatinine 0.74, blood sugar 101. AST 48. Lactic acid 0.8, ammonia level X, troponin 0.014. ProBNP 224. EKG was a sinus rhythm with no acute changes. Patient is seen today in the emergency center with plan to admit to the MedSur floor. Aricept has been increased frequency to twice daily and Namenda added. Neurology consult. 01/14: Patient is seen in follow-up today. She is sleeping at the time of evaluation. She had no issues overnight other than sound hours. She has been started on Namenda as a new medication, increased Aricept frequency. Discussed discharge planning with the patient's daughter who is her POA, she is agreeable to take the patient home for now and told bed opens up at the memory care unit at [facility]. She will plan to increase care so he patient has 24-hour supervision. She also relates the patient has had no appetite and Remeron ordered. Prescriptions have been sent to her pharmacy today so daughter can pick those up early. Plan is to monitor overnight and discharge tomorrow. 01/15: TSH 0.644. Patient has been afebrile, heart rate 54, blood pressure 143/70, pulse ox 93% on room air. The patient has had no problems overnight. She remains pleasantly confused. Patient seems to be better was able to get up to the bathroom and ambulate. She is following directions. Update from patient's daughter is that she has made arrangements for 24-hour care for home. Patient will be discharged home today in stable condition. Assessment and Plan 1. Metabolic encephalopathy most likely secondary to worsening dementia and noncompliance with medication regime. 2. Dementia, most likely Alzheimer's type. 3. Recurrent depression and generalized anxiety disorder. 4. Glaucoma. 5. Overactive bladder. 6. Hypothyroidism. 7. Generalized debility. PT and OT consults. 8. COVID-19 infection not present. Discharge plan: Return to [facility] with 24-hour caregivers with plan to transition to the memory unit. Impression and plan of care have been directed as dictated by the signing physician. Fatimah Guzman nurse practitioner acting as scribe for signing physician. Patient Condition at Discharge: Good Plan - Discharge Summary Discharge Rx Participant: No New Discharge Prescriptions: New Donepezil [Aricept] 10 mg PO BID #60 tab Memantine [Namenda] 5 mg PO BID #60 tab Mirtazapine [Remeron] 7.5 mg PO HS #30 tab Continue Spironolactone 25 mg PO DAILY Levothyroxine Sodium [Synthroid] 50 mcg PO DAILY DULoxetine HCL [Cymbalta] 30 mg PO DAILY Omeprazole Magnesium [PriLOSEC OTC] 20 mg PO HS busPIRone HCl [Buspar] 5 mg PO BID Tolterodine Tartrate [Detrol LA] 4 mg PO DAILY Atorvastatin [Lipitor] 40 mg PO Q48H Aspirin EC [Ecotrin Low Dose] 81 mg PO HS Timolol 0.5% Ophth Soln [Timoptic 0.5% Ophth Soln] 1 drop BOTH EYES DAILY acetaZOLAMIDE [Diamox] 125 mg PO DAILY Melatonin 5 mg PO HS PRN PRN Reason: Insomnia risperiDONE 0.5 mg PO BID #60 tab Discontinued Donepezil [Aricept] 10 mg PO HS Discharge Medication List Aspirin EC [Ecotrin Low Dose] 81 mg PO HS 01/14/20 [History] Atorvastatin [Lipitor] 40 mg PO Q48H 01/14/20 [History] DULoxetine HCL [Cymbalta] 30 mg PO DAILY 01/14/20 [History] Levothyroxine Sodium [Synthroid] 50 mcg PO DAILY 01/14/20 [History] Omeprazole Magnesium [PriLOSEC OTC] 20 mg PO HS 01/14/20 [History] Spironolactone 25 mg PO DAILY 01/14/20 [History] Timolol 0.5% Ophth Soln [Timoptic 0.5% Ophth Soln] 1 drop BOTH EYES DAILY 01/14/20 [History] Tolterodine Tartrate [Detrol LA] 4 mg PO DAILY 01/14/20 [History] acetaZOLAMIDE [Diamox] 125 mg PO DAILY 01/14/20 [History] busPIRone HCl [Buspar] 5 mg PO BID 01/14/20 [History] Melatonin 5 mg PO HS PRN 01/15/20 [History] Donepezil [Aricept] 10 mg PO BID #60 tab 01/16/20 [Rx] Memantine [Namenda] 5 mg PO BID #60 tab 01/16/20 [Rx] Mirtazapine [Remeron] 7.5 mg PO HS #30 tab 01/16/20 [Rx] risperiDONE 0.5 mg PO BID #60 tab 01/16/20 [Rx] Follow up Appointment(s)/Referral(s): Milton Adkins MD [Primary Care Provider] - 1 Week (Please call for appointment saturday01/18/20, office is closed today.) Patient Instructions/Handouts: Dementia (ED), Altered Mental Status (ED), Encephalopathy (DC)
== END 2020-01-17 12:14 | disposition home or self-care (01) ==
LOC: EC 21:00 → 5NMEDONC 22:52
PROVIDERS: ADMIT Internal Medicine Geriatric Medicine; ATTEND Internal Medicine Geriatric Medicine
DX: G93.41 Metabolic encephalopathy (principal); Z91.14 Patient's other noncompliance with medication regimen; E78.5 Hyperlipidemia, unspecified; E03.9 Hypothyroidism, unspecified; Z86.73 Personal history of transient ischemic attack (TIA), and cerebral infarction without residual deficits; R41.3 Other amnesia; I12.9 Hypertensive chronic kidney disease with stage 1 through stage 4 chronic kidney disease, or unspecified chronic kidney disease; N18.2 Chronic kidney disease, stage 2 (mild); M15.9 Polyosteoarthritis, unspecified; Z87.891 Personal history of nicotine dependence; R32 Unspecified urinary incontinence; Z03.818 Encounter for observation for suspected exposure to other biological agents ruled out; N39.0 Urinary tract infection, site not specified; J44.9 Chronic obstructive pulmonary disease, unspecified; F03.90 Unspecified dementia, unspecified severity, without behavioral disturbance, psychotic disturbance, mood disturbance, and anxiety; F32.9 Major depressive disorder, single episode, unspecified; F41.1 Generalized anxiety disorder; H40.9 Unspecified glaucoma; N32.81 Overactive bladder; Z82.49 Family history of ischemic heart disease and other diseases of the circulatory system; Z82.5 Family history of asthma and other chronic lower respiratory diseases; Z79.82 Long term (current) use of aspirin; Z79.890 Hormone replacement therapy; Z79.899 Other long term (current) drug therapy
CPT/HCPCS: 96361 ×3; 96372 ×3; 96374; 99285; 36415; 93005; 83880; 80053; 84443; 82140; 82553; 83605; 83735; 84100; 84484; 85025; 85610; 85730; 81003; 71046; 70450; G0378 ×4; U0003; J1644 ×3; J0696

== ENCOUNTER 2020-06-20 12:56 | Inpatient (IN) | payer MEDICARE, BC ==
--- NOTE | 2020-06-20 14:27 | ED ---
General Adult HPI - General Source: patient, EMS, RN notes reviewed Mode of arrival: EMS Limitations: no limitations <Brian Grande - Last Filed: 06/20/20 16:27> <Mookie Rascon - Last Filed: 06/20/20 16:38> - General Chief complaint: Weakness Stated complaint: Weakness Time Seen by Provider: 06/20/20 14:05 - History of Present Illness Initial comments: 89-year-old female with a past medical history of dementia, hyperlipidemia presents to the emergency room for weakness for about 5 days. Patient has a history of dementia and is a poor historian. I did speak with her daughter who states the patient has been more weak than normal the past couple days and has been a 2 person assist at her assisted living facility rather than a 1 person assist. She states they were concerned patient had a urinary tract infection or something that may be causing this weakness. She also notices that her legs are a little more swollen than normal. No history of heart failure. patient had covid a few weeks ago. Patient has no other complaints at this time including shortness of breath, chest pain, abdominal pain, nausea or vomiting, headache, or visual changes. (Brian Grande) - Related Data Home Medications Medication Instructions Recorded Confirmed Aspirin EC [Ecotrin Low Dose] 81 mg PO HS 01/14/20 01/14/20 Atorvastatin [Lipitor] 40 mg PO Q48H 01/14/20 01/14/20 DULoxetine HCL [Cymbalta] 30 mg PO DAILY 01/14/20 01/14/20 Levothyroxine Sodium [Synthroid] 50 mcg PO DAILY 01/14/20 01/14/20 Omeprazole Magnesium [PriLOSEC OTC] 20 mg PO HS 01/14/20 01/14/20 Spironolactone 25 mg PO DAILY 01/14/20 01/14/20 Timolol 0.5% Ophth Soln [Timoptic 1 drop BOTH EYES DAILY 01/14/20 01/14/20 0.5% Ophth Soln] Tolterodine Tartrate [Detrol LA] 4 mg PO DAILY 01/14/20 01/14/20 acetaZOLAMIDE [Diamox] 125 mg PO DAILY 01/14/20 01/14/20 busPIRone HCl [Buspar] 5 mg PO BID 01/14/20 01/14/20 Melatonin 5 mg PO HS PRN 01/15/20 01/15/20 Previous Rx's Medication Instructions Recorded Donepezil [Aricept] 10 mg PO BID #60 tab 01/16/20 Memantine [Namenda] 5 mg PO BID #60 tab 01/16/20 Mirtazapine [Remeron] 7.5 mg PO HS #30 tab 01/16/20 risperiDONE 0.5 mg PO BID #60 tab 01/16/20 Allergies Allergy/AdvReac Type Severity Reaction Status Date / Time No Known Allergies Allergy Verified 01/14/20 23:10 Review of Systems ROS Other: All systems not noted in ROS Statement are negative. <Brian Grande - Last Filed: 06/20/20 16:27> ROS Other: All systems not noted in ROS Statement are negative. <Mookie Rascon - Last Filed: 06/20/20 16:38> ROS Statement: Those systems with pertinent positive or pertinent negative responses have been documented in the HPI. Past Medical History Past Medical History: Dementia, Hyperlipidemia, Thyroid Disorder Additional Past Medical History / Comment(s): dementia History of Any Multi-Drug Resistant Organisms: None Reported Additional Past Surgical History / Comment(s): Patients daughter states she had eye surgery for glaucoma Past Anesthesia/Blood Transfusion Reactions: No Reported Reaction Past Psychological History: No Psychological Hx Reported Smoking Status: Former smoker - Past Family History Father Additional Family Medical History / Comment(s): Patient does not know her parents medical history. Brother(s) Additional Family Medical History / Comment(s): Patient has 2 brothers and 2 sisters. Patient denies any known medical problems. Daughter(s) Additional Family Medical History / Comment(s): Patient has 4 children. One daughter has hypertension and asthma. <Brian Grande - Last Filed: 06/20/20 16:27> General Exam Limitations: no limitations General appearance: alert, in no apparent distress Head exam: Present: atraumatic, normocephalic, normal inspection Eye exam: Present: normal appearance, PERRL, EOMI. Absent: scleral icterus, conjunctival injection, periorbital swelling ENT exam: Present: normal exam, mucous membranes moist Neck exam: Present: normal inspection, full ROM. Absent: tenderness, meningismus, lymphadenopathy Respiratory exam: Present: normal lung sounds bilaterally. Absent: respiratory distress, wheezes, rales, rhonchi, stridor Cardiovascular Exam: Present: regular rate, normal rhythm, normal heart sounds. Absent: systolic murmur, diastolic murmur, rubs, gallop, clicks GI/Abdominal exam: Present: soft, normal bowel sounds. Absent: distended, tenderness, guarding, rebound, rigid <Brian Grande - Last Filed: 06/20/20 16:27> Course Vital Signs 06/20/20 06/20/20 13:04 15:31 Temperature 97.5 F L 98.1 F Pulse Rate 86 81 Respiratory 18 16 Rate Blood Pressure 138/86 158/82 O2 Sat by Pulse 97 98 Oximetry EKG Findings - EKG Comments: EKG Findings:: Normal sinus rhythm, ventricular rate 82, NJ interval 166, QTC 432 <Brian Grande - Last Filed: 06/20/20 16:27> Medical Decision Making - Lab Data Result diagrams: 06/20/20 14:25 06/20/20 14:25 <Brian Grande - Last Filed: 06/20/20 16:27> - Lab Data Result diagrams: 06/20/20 14:25 06/20/20 14:25 <Mookie Rascon - Last Filed: 06/20/20 16:38> - Medical Decision Making Patient presents without family. Report from EMS states the patient is weak and not urinating much. They also noticed swelling in her legs. No history of heart failure. I did contact family member. Patient daughter states she was told by the assisted living facility patient was urinating less. Patient hadn't urinated for 6 hours. Patient had 100 mL in her bladder when she was straight cathed. This is likely because patient wasn't drinking much today. Her daughter would like me to remind her to drink. She was given some IV fluids. Vitals are stable. CBC CMP unremarkable. No acute intracranial abnormality seen on CAT scan of the brain. Chest x-ray shows evidence for no acute pulmonary disease. We did attempt to ambulate patient and she was a heavy two-person assist. She is leaning somewhat to the left. Daughter states that they did notice this at the assisted living facility and it is not normal for her. She does have some weakness in the left leg. This has been ongoing for the past several days. At this time patient will be admitted for weakness as well as a neurology consult given difficulty with leaning towards the left and weakness in the left leg. Patient was evaluated by Dr. Rascon as well. (Brian Grande) Patient reevaluated and an reexamined by myself, Dr. Rascon. I agree with PA findings. This includes diagnostic interpretation and treatment plan. Patient does have left leg weakness. Patient does appear to have some possible upper extremity weakness as well however patient is difficult to assess. Patient reportedly has been having difficulty with ambulation at home and leaning towards the left. Nursing staff here did notice the same. Case was discussed with Dr. Adkins who is familiar with this patient and will admit. (Mookie Rascon) - Lab Data Lab Results 06/20/20 06/20/20 06/20/20 Range/Units 14:25 14:25 14:25 WBC 8.0 (3.8-10.6) k/uL RBC 5.17 (3.80-5.40) m/uL Hgb 14.6 (11.4-16.0) gm/dL Hct 44.7 (34.0-46.0) % MCV 86.5 (80.0-100.0) fL MCH 28.3 (25.0-35.0) pg MCHC 32.7 (31.0-37.0) g/dL RDW 14.0 (11.5-15.5) % Plt Count 237 (150-450) k/uL MPV 8.2 Neutrophils % 75 % Lymphocytes % 13 % Monocytes % 7 % Eosinophils % 4 % Basophils % 0 % Neutrophils # 6.0 (1.3-7.7) k/uL Lymphocytes # 1.0 (1.0-4.8) k/uL Monocytes # 0.6 (0-1.0) k/uL Eosinophils # 0.3 (0-0.7) k/uL Basophils # 0.0 (0-0.2) k/uL PT 10.9 (9.0-12.0) sec INR 1.1 (<1.2) APTT 22.7 (22.0-30.0) sec Sodium (137-145) mmol/L Potassium (3.5-5.1) mmol/L Chloride (98-107) mmol/L Carbon Dioxide (22-30) mmol/L Anion Gap mmol/L BUN (7-17) mg/dL Creatinine (0.52-1.04) mg/dL Est GFR (CKD-EPI)AfAm (>60 ml/min/1.73 sqM) Est GFR (CKD-EPI)NonAf (>60 ml/min/1.73 sqM) Glucose (74-99) mg/dL Calcium (8.4-10.2) mg/dL Magnesium (1.6-2.3) mg/dL Total Bilirubin (0.2-1.3) mg/dL AST (14-36) U/L ALT (4-34) U/L Alkaline Phosphatase (38-126) U/L Troponin I (0.000-0.034) ng/mL NT-Pro-B Natriuret Pep pg/mL Total Protein (6.3-8.2) g/dL Albumin (3.5-5.0) g/dL Urine Color Yellow Urine Appearance Clear (Clear) Urine pH 6.5 (5.0-8.0) Ur Specific [place] 1.023 (1.001-1.035) Urine Protein Trace H (Negative) Urine Glucose (UA) Negative (Negative) Urine Ketones Negative (Negative) Urine Blood Negative (Negative) Urine Nitrite Negative (Negative) Urine Bilirubin Negative (Negative) Urine Urobilinogen 2.0 (<2.0) mg/dL Ur Leukocyte Esterase Small H (Negative) Urine RBC 1 (0-5) /hpf Urine WBC 3 (0-5) /hpf Ur Squamous Epith Cells <1 (0-4) /hpf Urine Bacteria Rare H (None) /hpf Urine Mucus Rare H (None) /hpf 06/20/20 06/20/20 06/20/20 Range/Units 14:25 14:25 14:25 WBC (3.8-10.6) k/uL RBC (3.80-5.40) m/uL Hgb (11.4-16.0) gm/dL Hct (34.0-46.0) % MCV (80.0-100.0) fL MCH (25.0-35.0) pg MCHC (31.0-37.0) g/dL RDW (11.5-15.5) % Plt Count (150-450) k/uL MPV Neutrophils % % Lymphocytes % % Monocytes % % Eosinophils % % Basophils % % Neutrophils # (1.3-7.7) k/uL Lymphocytes # (1.0-4.8) k/uL Monocytes # (0-1.0) k/uL Eosinophils # (0-0.7) k/uL Basophils # (0-0.2) k/uL PT (9.0-12.0) sec INR (<1.2) APTT (22.0-30.0) sec Sodium 136 L (137-145) mmol/L Potassium 3.9 (3.5-5.1) mmol/L Chloride 108 H (98-107) mmol/L Carbon Dioxide 21 L (22-30) mmol/L Anion Gap 7 mmol/L BUN 21 H (7-17) mg/dL Creatinine 0.87 (0.52-1.04) mg/dL Est GFR (CKD-EPI)AfAm 68 (>60 ml/min/1.73 sqM) Est GFR (CKD-EPI)NonAf 59 (>60 ml/min/1.73 sqM) Glucose 159 H (74-99) mg/dL Calcium 9.2 (8.4-10.2) mg/dL Magnesium 2.0 (1.6-2.3) mg/dL Total Bilirubin 0.5 (0.2-1.3) mg/dL AST 26 (14-36) U/L ALT 22 (4-34) U/L Alkaline Phosphatase 94 (38-126) U/L Troponin I 0.015 (0.000-0.034) ng/mL NT-Pro-B Natriuret Pep 302 pg/mL Total Protein 5.8 L (6.3-8.2) g/dL Albumin 3.2 L (3.5-5.0) g/dL Urine Color Urine Appearance (Clear) Urine pH (5.0-8.0) Ur Specific [place] (1.001-1.035) Urine Protein (Negative) Urine Glucose (UA) (Negative) Urine Ketones (Negative) Urine Blood (Negative) Urine Nitrite (Negative) Urine Bilirubin (Negative) Urine Urobilinogen (<2.0) mg/dL Ur Leukocyte Esterase (Negative) Urine RBC (0-5) /hpf Urine WBC (0-5) /hpf Ur Squamous Epith Cells (0-4) /hpf Urine Bacteria (None) /hpf Urine Mucus (None) /hpf Disposition Is patient prescribed a controlled substance at d/c from ED?: No Time of Disposition: 16:23 <Brian Grande - Last Filed: 06/20/20 16:27> <Mookie Rascon - Last Filed: 06/20/20 16:38> Clinical Impression: Weakness Disposition: ADMITTED IP TO THIS HOSP Referrals: Milton Adkins MD [Primary Care Provider] - 1-2 days
[2020-06-20 14:40] LABS: Basophils % (A) 0 %; Eosinophils # (A) 0.3 k/uL (0-0.7); Eosinophils % (A) 4 %; HCT 44.7 % (34.0-46.0); HGB 14.6 gm/dL (11.4-16.0); Lymphocytes % (A) 13 %; MCH 28.3 pg (25.0-35.0); MCHC 32.7 g/dL (31.0-37.0); MCV 86.5 fL (80.0-100.0); Mean Platelet Volume 8.2; Monocytes # (A) 0.6 k/uL (0-1.0); Monocytes % (A) 7 %; Neutrophils % (A) 75 %; Platelet Count 237 k/uL (150-450); RBC 5.17 m/uL (3.80-5.40)
[2020-06-20 14:49] LABS: Potassium 3.9 mmol/L (3.5-5.1)
[2020-06-20 14:50] LABS: Albumin 3.2 g/dL (3.5-5.0); Calcium 9.2 mg/dL (8.4-10.2); Total Bilirubin 0.5 mg/dL (0.2-1.3); Total Protein 5.8 g/dL (6.3-8.2)
[2020-06-20 14:55] LABS: Appearance,Urine Clear (Clear); Bacteria,Urine Rare /hpf; Bilirubin,Urine Negative (Negative); Blood,Urine Negative (Negative); Color,Urine Yellow; Glucose,Urine (UA) Negative (Negative); INR 1.1 (<1.2); Ketones,Urine Negative (Negative); Leukocyte Esterase,Urine Small (Negative); Mucus,Urine Rare /hpf; Nitrite,Urine Negative (Negative); PH, Urine 6.5 (5.0-8.0); Partial Thromboplastin Time 22.7 sec (22.0-30.0); Protein,Urine Trace (Negative); Prothrombin Time 10.9 sec (9.0-12.0); RBC,Urine 1 /hpf (0-5); Specific Gravity,Urine 1.023 (1.001-1.035); Squamous Epithelial Cell,Urine <1 /hpf (0-4); WBC,Urine 3 /hpf (0-5)
--- NOTE | 2020-06-20 15:09 | CT ---
EXAMINATION TYPE: CT brain wo con DATE OF EXAM: 06/20/2020 COMPARISON: 01/14/2020 HISTORY: 89-year-old female Weakness. TECHNIQUE: Examination was done in axial plane without intravenous contrast. Coronal and sagittal r econstructions performed. CT DLP: 1036.4 mGycm Automated exposure control for dose reduction was used. FINDINGS: There is no evidence of acute intracranial hemorrhage, acute ischemic changes, mass, mass-effect, or extra-axial fluid collection. There is no effacement of cerebral sulci or basal subarachnoid cister ns. There is no midline shift. Andino-white matter distinction is preserved. Mild generalized supratentorial and central cerebral atrophy. Secondary mild prominence to the ventri cular system, unchanged from prior exam. Mild periventricular white matter hypodensity. Otoscopic payton cifications within the carotid siphons. Bilateral ophthalmologic device is along the anterior aspect of the globes. Cerumen within the left e xternal auditory canal. Moderate lobulated mucosal thickening floor of the left maxillary sinus. IMPRESSION: Similar generalized atrophy including central cerebral atrophy. Mild burden of chronic small vessel i schemic disease. No acute intracranial abnormality seen.
[2020-06-20] MEDS ORDERED: SODIUM CHLORIDE 0.9% 500 ML 500 ML IV STA (15:11)
--- NOTE | 2020-06-20 15:16 | XR ---
EXAMINATION TYPE: XR chest 2V DATE OF EXAM: 06/20/2020 COMPARISON: 01/14/2020 HISTORY: Shortness of breath TECHNIQUE: Frontal and lateral views of the chest are obtained. FINDINGS: Scattered senescent parenchymal changes noted. Hyperinflation compatible with COPD. No evidence for infiltrate. No evidence for atelectasis. Heart size is stable. Mediastinal structures are stable and grossly unremarkable. No evidence for hilar prominence. Degenerative changes dorsal spine. IMPRESSION: 1. No evidence for acute pulmonary disease.
[2020-06-20] MEDS ORDERED: NALOXONE 0.4 MG/ML 1 ML VIAL IV PRN (16:24)
[2020-06-20] MEDS ORDERED: ASPIRIN 81 MG PO STA (16:26)
[2020-06-20] MEDS ORDERED: ALBUTEROL HFA INHALER INHALATION PRN (22:35)
--- NOTE | 2020-06-20 22:35 | P.HPIM ---
History of Present Illness H&P Date: 06/20/20 Chief Complaint: Altered mental status, sepsis with UTI, severe advanced dem entia, possible 89-year-old female one of my office patient who has been in [facility] for the last few month, patient is known to have history of advanced dementia, hypertension, hyperlipidemia and hypothyroidism patient is memory has been getting much worse her mobility has been significantly decrease dependency has been worse. Patient has not had much urine output last 2 days with no feeling of going to the bathroom she developed to have worsening altered mental status along with left-sided worsening weakness compared to before with the current symptom family decided to bring patient to demurs department at [facility] where was seen and evaluated her CT of the brain originally shows similar generalized atrophy including central cerebral atmosphere mild Blair of the chronic small vessel disease. UA was slightly but positive white blood cell was not elevated her kidney function remained good blood sugar was mildly elevated. Patient was started on hydration continue to have slight weakness in the left side along with significant altered mental status, we'll consult neurology continue neuro exam every shift admit patient to the hospital further workup will be done. Review of Systems CONSTITUTIONAL: Well-developed no acute respiratory distress. More confused EYES: No icterus sclerae, no conjunctivitis. EARS, NOSE, MOUTH, THROAT, and FACE: No sore throat, lymphadenopathy, carotid bruits or deformity. RESPIRATORY: No SOB cough or wheezes. CARDIOVASCULAR: No CP, Palpitation, PND, Orthopnea, or angina. GASTROINTESTINAL: No Abd pain, Nausea or vomiting, no Diarrhea or constipation, No GI Bleed, no distention or masses. GENITOURINARY: Positive burning frequency and urgency with incontinence INTEGUMENT/BREAST: Negative for any muscular injury with mild osteoarthritis.. HEMATOLOGIC/LYMPHATIC: Negative for bleed or purpura. MUSCULOSKELTAL: Negative for Myalgia or arthralgia. NEURLOGICAL: Alert confuse with significant altered mental status worsening dementia. BEHAVIORAL/PSYCH: Negative. ENDOCRINE: Negative. Past Medical History Past Medical History: Dementia, Hyperlipidemia, Thyroid Disorder Additional Past Medical History / Comment(s): dementia History of Any Multi-Drug Resistant Organisms: None Reported Additional Past Surgical History / Comment(s): Patients daughter states she had eye surgery for glaucoma Past Anesthesia/Blood Transfusion Reactions: No Reported Reaction Past Psychological History: No Psychological Hx Reported Smoking Status: Former smoker - Past Family History Father Additional Family Medical History / Comment(s): Patient does not know her parents medical history. Brother(s) Additional Family Medical History / Comment(s): Patient has 2 brothers and 2 sisters. Patient denies any known medical problems. Daughter(s) Additional Family Medical History / Comment(s): Patient has 4 children. One daughter has hypertension and asthma. Medications and Allergies Home Medications Medication Instructions Recorded Confirmed Type DULoxetine HCL [Cymbalta] 30 mg PO DAILY 01/14/20 06/20/20 History Levothyroxine Sodium [Synthroid] 50 mcg PO DAILY 01/14/20 06/20/20 History Omeprazole Magnesium [PriLOSEC OTC] 20 mg PO DAILY 01/14/20 06/20/20 History Spironolactone 25 mg PO DAILY 01/14/20 06/20/20 History Timolol 0.5% Ophth Soln [Timoptic 1 drop BOTH EYES DAILY 01/14/20 06/20/20 History 0.5% Ophth Soln] Tolterodine Tartrate [Detrol LA] 4 mg PO DAILY 01/14/20 06/20/20 History acetaZOLAMIDE [Diamox] 125 mg PO BID 01/14/20 06/20/20 History busPIRone HCl [Buspar] 5 mg PO BID 01/14/20 06/20/20 History Melatonin 5 mg PO HS 01/15/20 06/20/20 History Memantine [Namenda] 5 mg PO BID #60 tab 01/16/20 06/20/20 Rx Mirtazapine [Remeron] 7.5 mg PO HS #30 tab 01/16/20 06/20/20 Rx risperiDONE 0.5 mg PO BID #60 tab 01/16/20 06/20/20 Rx Albuterol Inhaler [Ventolin Hfa 2 puff INHALATION RT-Q4H PRN 06/20/20 06/20/20 History Inhaler] Ascorbic Acid [Vitamin C] 1,000 mg PO DAILY 06/20/20 06/20/20 History Aspirin 325 mg PO DAILY 06/20/20 06/20/20 History Atorvastatin [Lipitor] 20 mg PO Q48H 06/20/20 06/20/20 History Bisacodyl 5 mg PO BID PRN 06/20/20 06/20/20 History Calcium Carbonate [Tums] 1,000 mg PO TID PRN 06/20/20 06/20/20 History Cholecalciferol [Vitamin D3 (25 2,000 unit PO DAILY 06/20/20 06/20/20 History Mcg = 1000 Iu)] Donepezil HCl [Aricept] 10 mg PO BID 06/20/20 06/20/20 History Hydrocortisone Oint 1 applic PO BID PRN 06/20/20 06/20/20 History [Hydrocortisone 1% Oint] Menthol/Zinc Oxide [Calmoseptine 1 applic TOPICAL DAILY PRN 06/20/20 06/20/20 History Ointment] Nystatin 100,000 Unit/gm Powd 1 applic TOPICAL BID PRN 06/20/20 06/20/20 History [Mycostatin Powder] Wheat Dextrin [Benefiber] 1 packet PO TID@0800,1200,1600 06/20/20 06/20/20 History Zinc 50 mg PO DAILY 06/20/20 06/20/20 History Allergies Allergy/AdvReac Type Severity Reaction Status Date / Time No Known Allergies Allergy Verified 06/20/20 16:50 Physical Exam Vitals: Vital Signs Temp Pulse Resp BP Pulse Ox 06/20/20 19:09 17 06/20/20 17:49 90 20 146/95 98 06/20/20 15:31 98.1 F 81 16 158/82 98 06/20/20 13:04 97.5 F L 86 18 138/86 97 Intake and Output 06/20/20 06/20/20 06/20/20 06:59 14:59 22:59 Other: Weight 83.915 kg General Appearance: Alert, cooperative, no distress, appears stated age. Neck HEENT: Supple, no lymphadenopathy, no thyroid enlargement, no carotid bruits. Lungs: Clear to auscultation without crackles or wheezes no rhonchi, no deformity. Chest Wall: Chest wall normal expansion with deep inspiration no tenderness and no deformity was found on exam, no costochondral pain or discomfort. Heart: Regular rate and rhythm, S1, S2 normal, no murmur, rub or gallop. Back: Symmetric, no curvature, ROM normal, no CVA tenderness. Abdomen: Soft, non-tender, bowel sounds active all four quadrants, no masses, no organomegaly. Extremities: Extremities normal, atraumatic, no cyanosis or edema. Pulses: 2+ and symmetric. Skin: Skin color, texture, tugor normal, no rashes or lesions. Neurologic: Alert oriented with slight confusion cranial nerves II through XII intact, slight weakness in the left more than the right with severe abnormal balance and gait. Results CBC & Chem 7: 06/20/20 14:25 06/20/20 14:25 Labs: Abnormal Lab Results - Last 24 Hours (Table) 06/20/20 06/20/20 Range/Units 14:25 14:25 Sodium 136 L (137-145) mmol/L Chloride 108 H (98-107) mmol/L Carbon Dioxide 21 L (22-30) mmol/L BUN 21 H (7-17) mg/dL Glucose 159 H (74-99) mg/dL Total Protein 5.8 L (6.3-8.2) g/dL Albumin 3.2 L (3.5-5.0) g/dL Urine Protein Trace H (Negative) Ur Leukocyte Esterase Small H (Negative) Urine Bacteria Rare H (None) /hpf Urine Mucus Rare H (None) /hpf Assessment and Plan Assessment: 1 change in mental status: Combination of encephalopathy from UTI, stroke, hypertension or other infection. Continue to treat underlying disease neuro consultation continue current management. 2 possible CVA with left-sided weakness, CT of the brain was not suggested originally consult neurology to see if for patient's best interest to go for an MRI of the brain along with carotid and echo. 3 recurrent UTI and sepsis: UA was slightly but positive, waiting for culture results patient will be started on Rocephin 1 g daily. 4 hypertension: Remain well controlled on spironolactone 25 mg daily. 5 advance dementia: Mostly Alzheimer disease has been on Aricept 10 mg twice a day, and Namenda 5 mg twice a day also still using Remeron 7.5 mg daily at bedtime. 6 hypothyroidism: Continue patient on levothyroxine 50 g daily. 7 depression: Has been on Cymbalta 30 mg a day along with BuSpar 5 mg twice a day and respiratory done 0.5 mg twice a day. 8 hyperlipidemia: Remain on atorvastatin 20 mg every other day. 9 debility: Not been able to ambulate and walk, was start PTOT and patient might require further help and aid not been able to be provided at [facility]. 10 hyperglycemia: Continue patient on Accu-Chek with sliding scales coverage. 11 GI prophylaxis: Continue patient on Pepcid daily. 12 DVT prophylaxis: Patient will be on heparin subcutaneous. CODE STATUS: DO NOT RESUSCITATE. Admit patient to inpatient service for more than 2 night stay.
[2020-06-20] MEDS ORDERED: ATORVASTATIN 20 MG TAB PO SCH (23:30)
[2020-06-21] MEDS: SODIUM CHLORIDE 0.9% 1,000 ML IV SCH ×3 (06:49→17:29)
[2020-06-21] MEDS: LEVOTHYROXINE 50 MCG TAB PO SCH (07:03)
[2020-06-21] MEDS ORDERED: WHEAT DEXTRIN PO SCH (08:00)
[2020-06-21] MEDS: ASPIRIN 325 MG TAB PO SCH (08:49)
[2020-06-21] MEDS: busPIRone HCl 5 MG TAB PO SCH ×2 (08:49→22:25)
[2020-06-21] MEDS: ZINC SULFATE 220 MG CAP PO SCH (08:49)
[2020-06-21] MEDS: ASCORBIC ACID 500 MG TAB PO SCH (08:49)
[2020-06-21] MEDS: DULoxetine HCL 30 MG CAPSULE.DR PO SCH (08:50)
[2020-06-21] MEDS: DONEPEZIL 10 MG TAB PO SCH ×2 (08:50→22:25)
[2020-06-21] MEDS: CHOLECALCIFEROL 1,000 UNIT TAB PO SCH (08:50)
[2020-06-21] MEDS: acetaZOLAMIDE 250 MG TAB PO SCH ×2 (08:50→22:26)
[2020-06-21] MEDS: SPIRONOLACTONE 25 MG TAB PO SCH (08:50)
[2020-06-21] MEDS: PANTOPRAZOLE 40 MG TABLET PO SCH (08:50)
[2020-06-21] MEDS: TIMOLOL 0.5% OPHTH DROPS 5 ML BTL BOTH EYES SCH (08:51)
[2020-06-21] MEDS: risperiDONE 0.5 MG TAB PO SCH ×2 (08:52→22:26)
[2020-06-21] MEDS ORDERED: NYSTATIN 100,000 UNIT/GM POWD 15 GM TOPICAL PRN (09:00)
[2020-06-21] MEDS ORDERED: HYDROCORTISONE 1% OINT 28.35 GM TUBE TOPICAL PRN (09:00)
[2020-06-21] MEDS ORDERED: MENTHOL-ZINC OXIDE OINT 113 GM TUBE TOPICAL PRN (09:00)
[2020-06-21] MEDS ORDERED: CALCIUM CARBONATE 500 MG CHEWABLE PO PRN (09:00)
[2020-06-21] MEDS ORDERED: bisacodyL 5 MG TABLET.DR PO PRN (09:00)
[2020-06-21] MEDS: OXYBUTYNIN XL 5 MG TAB.ER.24 PO SCH (09:08)
[2020-06-21] MEDS: MEMANTINE 5 MG TAB PO SCH ×2 (09:08→22:26)
--- NOTE | 2020-06-21 09:40 | CDI ---
Documentation Clarification Form Date: 06/21/2020 09:21:52 AM From: Catina Luna RN CCDS Admit Date: 06/20/2020 04:24:00 PM Patient Name: Saeed Mejia Visit Number: [id number] Discharge Date: ATTENTION: The Clinical Documentation Specialists (CDI) and [facility] Coding Staff appreciate your assistance in clarifying documentation. Please respond to the clarification below the line at the bottom and electronically sign. The CDI & [facility] Coding staff will review the response and follow-up if needed. Please note: Queries are made part of the Legal Health Record. If you have any questions, please contact the author of this message via ITS. Dr. Milton Adkins Encephalopathy is documented in the H&P 06/20 History/Risk Factors: 89-year-old female presents the ED with weakness of about five days. Medical History: Dementia; HLD and Thyroid Disorder Clinical Indicators: Labs 06/20: Wbc 8.0; Neutrophils 6.0; Na 136; Chl 108; Carbon Dioxide 21; BUN 21; Glucose 159; Total Protein 5.8; Albumin 3.2; UA Protein trace; Leukocyte esterase small Wbc 3; urine bacteria rare. Brain CT 06/20: Similar generalized atrophy including central cerebral atrophy. Mild burden of chronic small vessel ischemic disease. H&P 06/20: change in mental status: Combination of encephalopathy from UTI, stroke, hypertension or other infection. Treatment: 06/21 Ceftriaxone IVPB Q24H; In your professional opinion, can you please clarify the specific type of Encephalopathy, if known? xx Metabolic Encephalopathy Other, please specify Unable to determine (Last Revision: September 2017) MTDD
--- NOTE | 2020-06-21 12:21 | P.CNNES ---
History of Present Illness Consult date: 06/21/20 Requesting physician: Brian Grande Reason for Consult: left left weakness History of Present Illness: This is a 89-year-old woman with medical history of advanced dementia, hyperlipidemia, hypertension and hypothyroidism that presented to the emergency department for weakness for the past 5 days. Patient is a poor history and history is obtained from medical records. Per medical records, the patient's daughter feels that the patient has been more weak the last couple days. She is a 2 person assist at the assisted living facility rather than 1 person assist. The patient daughter is concerned that the patient has urinary tract infection as a result causing her the weakness. Her legs have been swollen a little bit more than the normal. Per the primary team it is noted that patient mobility has then getting worse. Patient has not had much urine output for last 2 days with no feeding. She's been having left-sided worsening weakness compared to the before as well as that her mentation has been worse then baseline. I spoke with the patient daughter Suzette via phone and she told me that regarding her all mom's mentation she is only alert oriented 1 but the sometimes she'll remember holidays and sometimes not. Chin times she'll have a long conversation sometimes a limited conversation. She said that the that the patient has bilateral and knee pain and this been a chronic issue and the patient refused intervention. She said that her mom all she does at the assisted facility will is a sleep and sit around. Workup in the hospital consisted of: Initial vital signs: Blood pressure of 138/86, heart rate of 86, respiratory of 18, temperature of 97.5 Fahrenheit oral, pulse ox of 97% at room air. CT of the head is reported as a similar generalized atrophy including central cerebral atrophy. Mild burden of chronic small vessel ischemic disease. No acute intracranial abnormality seen. EKG was reported as normal sinus rhythm. Left axis deviation. Minimal voltage criteria for left ventricular hypertrophy, may be normal variant. Inferior infarct, age undetermined. White blood cell is a pleasant 0 which is within normal limits. Sodium is 136 which is just minimally low normal is 137-145 Review of Systems Review of system is limited but the prone positive and negative as per HPI. Past Medical History Past Medical History: Dementia, Hyperlipidemia, Thyroid Disorder Additional Past Medical History / Comment(s): dementia History of Any Multi-Drug Resistant Organisms: None Reported Additional Past Surgical History / Comment(s): Patients daughter states she had eye surgery for glaucoma Past Anesthesia/Blood Transfusion Reactions: No Reported Reaction Past Psychological History: No Psychological Hx Reported Smoking Status: Former smoker - Past Family History Father Additional Family Medical History / Comment(s): Patient does not know her parents medical history. Brother(s) Additional Family Medical History / Comment(s): Patient has 2 brothers and 2 sisters. Patient denies any known medical problems. Daughter(s) Additional Family Medical History / Comment(s): Patient has 4 children. One daughter has hypertension and asthma. Medications and Allergies Home Medications Medication Instructions Recorded Confirmed Type DULoxetine HCL [Cymbalta] 30 mg PO DAILY 01/14/20 06/20/20 History Levothyroxine Sodium [Synthroid] 50 mcg PO DAILY 01/14/20 06/20/20 History Omeprazole Magnesium [PriLOSEC OTC] 20 mg PO DAILY 01/14/20 06/20/20 History Spironolactone 25 mg PO DAILY 01/14/20 06/20/20 History Timolol 0.5% Ophth Soln [Timoptic 1 drop BOTH EYES DAILY 01/14/20 06/20/20 History 0.5% Ophth Soln] Tolterodine Tartrate [Detrol LA] 4 mg PO DAILY 01/14/20 06/20/20 History acetaZOLAMIDE [Diamox] 125 mg PO BID 01/14/20 06/20/20 History busPIRone HCl [Buspar] 5 mg PO BID 01/14/20 06/20/20 History Melatonin 5 mg PO HS 01/15/20 06/20/20 History Memantine [Namenda] 5 mg PO BID #60 tab 01/16/20 06/20/20 Rx Mirtazapine [Remeron] 7.5 mg PO HS #30 tab 01/16/20 06/20/20 Rx risperiDONE 0.5 mg PO BID #60 tab 01/16/20 06/20/20 Rx Albuterol Inhaler [Ventolin Hfa 2 puff INHALATION RT-Q4H PRN 06/20/20 06/20/20 History Inhaler] Ascorbic Acid [Vitamin C] 1,000 mg PO DAILY 06/20/20 06/20/20 History Aspirin 325 mg PO DAILY 06/20/20 06/20/20 History Atorvastatin [Lipitor] 20 mg PO Q48H 06/20/20 06/20/20 History Bisacodyl 5 mg PO BID PRN 06/20/20 06/20/20 History Calcium Carbonate [Tums] 1,000 mg PO TID PRN 06/20/20 06/20/20 History Cholecalciferol [Vitamin D3 (25 2,000 unit PO DAILY 06/20/20 06/20/20 History Mcg = 1000 Iu)] Donepezil HCl [Aricept] 10 mg PO BID 06/20/20 06/20/20 History Hydrocortisone Oint 1 applic PO BID PRN 06/20/20 06/20/20 History [Hydrocortisone 1% Oint] Menthol/Zinc Oxide [Calmoseptine 1 applic TOPICAL DAILY PRN 06/20/20 06/20/20 History Ointment] Nystatin 100,000 Unit/gm Powd 1 applic TOPICAL BID PRN 06/20/20 06/20/20 History [Mycostatin Powder] Wheat Dextrin [Benefiber] 1 packet PO TID@0800,1200,1600 06/20/20 06/20/20 History Zinc 50 mg PO DAILY 06/20/20 06/20/20 History Allergies Allergy/AdvReac Type Severity Reaction Status Date / Time No Known Allergies Allergy Verified 06/20/20 16:50 Physical Examination - Vital Signs Vital Signs: Vital Signs Temp Pulse Pulse Resp BP Pulse Ox 06/21/20 07:20 98.3 F 69 18 154/79 99 06/21/20 04:00 90 20 162/90 98 06/21/20 01:00 74 20 06/21/20 00:22 77 18 141/83 99 06/20/20 22:45 68 18 148/96 99 06/20/20 19:09 17 06/20/20 17:49 90 20 146/95 98 06/20/20 15:31 98.1 F 81 16 158/82 98 06/20/20 13:04 97.5 F L 86 18 138/86 97 Intake and Output 06/20/20 06/21/20 06/21/20 22:59 06:59 14:59 Other: Weight 83.915 kg GENERAL: The patient is lying in bed and is not in acute distress. CHEST: The heart rate is regular rate rhythm. No murmurs to auscultation. LUNG: Clear to auscultation bilaterally no wheezing noted throughout. Not labored breathing. ABDOMEN/GI: Bowel sounds present in all 4 quadrants. No tenderness to palpation throughout. NEUROLOGICAL: Higher mental function: The patient is awake, alert, oriented to self only but not place or time (baseline per patient daughter). Patient is following simple commands. No aphasia and no neglect. Cranial nerves: The pupils are round, equal and reactive to light. Visual mariscal are full to confrontation throughout. Extraocular movement is able to track me throughout room and no nystagmus seen. Facial sensation is normal to touch throughout. The facial strength is normal throughout. Hearing is moderately decreased bilaterally to hand rub. Tongue is midline and moved [id number] without any difficulty. No dysarthria is noted. Motor: Gait is deferred. The strength is limited because of the patient cooperation but and was able to lift of bilateral upper extremities symmetrically above gravity and affect the strength was as at least 4/5. While bilateral lower extremity I felt the proximally it was the 3/5 bilaterally and distally it was the 4/5 bilaterally. Normal tone and bulk. Cerebellum: Unable to assess because of cooperation. Sensation: Sensation is normal to touch throughout. Reflexes (right/left): 2+ throughout bilateral upper extremities while 1+ bilateral lower extremities. Plantars are downgoing bilaterally. Results GENERAL: The patient is lying in bed and is not in acute distress. CHEST: The heart rate is regular rate rhythm. No murmurs to auscultation. No carotid bruit bilaterally----. LUNG: Clear to auscultation bilaterally no wheezing noted throughout. Not labored breathing. ABDOMEN/GI: Bowel sounds present in all 4 quadrants. No tenderness to palpation throughout. NEUROLOGICAL: Higher mental function: The patient is awake, alert, oriented to self, place and time. Patient is following commands. No aphasia and no neglect. Cranial nerves: The pupils are round, equal and reactive to light and accommodation. Visual mariscal are full to confrontation throughout. Extraocular movement is intact no nystagmus is noted. Facial sensation is normal to touch throughout. The facial strength is normal throughout. Hearing is normal bilaterally to hand rub. Tongue is midline and moved [id number] without any difficulty. No dysarthria is noted. Shoulder shrug is normal bilaterally. Motor: The strength is 5 over 5 throughout. Normal tone and bulk. Cerebellum: Normal finger to nose heel to chin bilaterally. Sensation: Sensation is normal to touch throughout. Reflexes (right/left): Biceps ---; triceps---; brachioradialis; patellar----; ankles-----. Plantars are downgoing bilaterally. - Laboratory Findings CBC and BMP: 06/20/20 14:25 06/20/20 14:25 Abnormal Lab Findings: Abnormal Labs 06/20/20 06/20/20 14:25 14:25 Sodium 136 L Chloride 108 H Carbon Dioxide 21 L BUN 21 H Glucose 159 H Total Protein 5.8 L Albumin 3.2 L Urine Protein Trace H Ur Leukocyte Esterase Small H Urine Bacteria Rare H Urine Mucus Rare H Assessment and Plan Assessment: This is a 89-year-old woman that presented to the emergency department because of the weakness for the past 5 days. Per family, they feel her left lower extremity is weaker than the right. She has become a 2 person assist compared to one person assist at the assisted living facility. He also has decreased urine output as well as oral intake with worsening of the medication Weakness bilateral lower extremities for the last 2-5 days (Per team left side weakness but on examination no focal weakness and felt bilateral lower extremity > upper extremities). I doubt the patient has stroke since no focal deficits. Advance Dementia Recurrent urinary tract infections Hyperlipidemia Hypertension Hypothyroidism Plan: Ordered CT of the lumbar spine as of lower extremity weakness. The patient daughter refuses for the patient to have any the surgical intervention from the lumbar spine CT but would like to get answers. I will think an MRI of the brain is needed since unknown feeling the patient has a stroke she doesn't have any focal deficits on my examination. If she does have focal deficits I think we can the pursue with this MRI of the brain. She is on aspirin 325 daily as well as Lipitor 20 mg daily. I ordered a carotid duplex and 2D echo. I ordered vitamin B12 and folate level. Patient had a TSH on 01/14/2020 at which is 0.644 which is within normal limits. Therefore there is no need to repeat it. I ordered lipid panel. Physical therapy and occupation therapy are consulted. Regarding the leg weakness, it could be due to her knee as since the patient's daughter stated that the it's a chronic issue and the patient refused intervention with bilateral knees. We'll defer the management to the primary team and whether they want to consult orthopedic or as an inpatient or different as an outpatient. Regarding her advanced dementia the patient is on Aricept 10 mg 1 tablet twice a day as well as memantine 5 mg 1 tablet twice a day and Remeron 7.5m qhs. She is on melatonin 5 mg daily at bedtime. Regarding patient agitation and she is on risperidone 0.5 mg 1 tablet twice a day. An EEG is not warranted since the patient the according to the daughter does not have any episodes of loss of consciousness. Upon examining the patient the she is at baseline and I don't see any confusion off her mentation the compared to what the daughter describes. If she does have any worsening of the confusion and then we can proceed with the EEG. She is on the Acetazolamide 125 mg 1 tablet twice a day and not sure for what. Upon discharge recommend that patient to follow-up with a neurologist was in the 2-3 weeks. The plan was discussed with the patient daughter via phone. Thank you for the consultation. Jcarlos Rizzo M.D. Neuro-hospitalist Time with Patient: Greater than 30
--- NOTE | 2020-06-21 13:15 | CT ---
EXAMINATION TYPE: CT lumbar spine wo con DATE OF EXAM: 06/21/2020 12:57 PM COMPARISON: None HISTORY: Low back pain CT DLP: 998.1 mGycm Automated exposure control for dose reduction was used. Unenhanced CT of the lumbar spine was performed. Bone and soft tissue window settings are submitted as well as coronal and sagittal reconstructions. L1-L2: Vacuum disc changes noted. Posterior disc bulge with mild effacement ventral thecal sac. No ev idence for disc herniation or central stenosis. Ventral spondylosis identified. Bilateral foraminal e ncroachment. L2-L3: Vacuum disc identified. Posterior disc bulge. Grade 1 retrolisthesis of bowel to on L3 of 4 mm . Effacement ventral thecal sac with borderline central stenosis. Bilateral foraminal encroachment. V entral spondylosis. L3-L4: Vacuum disc noted. Posterior disc bulge. Hypertrophy ligamentum flavum and facet joint arthrop athy resulting in moderate central stenosis. Bilateral foraminal encroachment identified. L4-L5: Vacuum disc noted. Grade 1 anterolisthesis L4 and L5 of 4 mm. Posterior disc bulge. Postsurgic al changes of right hemilaminectomy. I cannot exclude recurrent central stenosis as her appears to be moderate constriction at this level. Bilateral foraminal encroachment. L5-S1: Vacuum disc noted. Grade 1 anterolisthesis of L5 on S1 measuring 5 mm. Posterior disc bulge wi th effacement of the ventral thecal sac and bilateral lateral recess stenosis and central stenosis. B ilateral foraminal encroachment. IMPRESSION: 1. Multilevel degenerative disc disease with multilevel central stenosis as noted above.
--- NOTE | 2020-06-21 13:32 | US ---
EXAMINATION TYPE: US carotid duplex BILAT DATE OF EXAM: 06/21/2020 COMPARISON: NONE CLINICAL HISTORY: stroke. EXAM MEASUREMENTS: RIGHT: Peak Systolic Velocity (PSV) cm/sec ----- Right CCA: 66.0 ----- Right ICA: 83.4 ----- Right ECA: 90.8 ICA/CCA ratio: 1.3 RIGHT: End Diastole cm/sec ----- Right CCA: 11.9 ----- Right ICA: 24.1 ----- Right ECA: 0.0 LEFT: Peak Systolic Velocity (PSV) cm/sec ----- Left CCA: 57.2 ----- Left ICA: 125.3 ----- Left ECA: 96.3 ICA/CCA ratio: 2.2 LEFT: End Diastole cm/sec ----- Left CCA: 8.4 ----- Left ICA: 34.9 ----- Left ECA: 0.0 VERTEBRALS (direction of flow): Right Vertebral: Antegrade Left Vertebral: Antegrade Rhythm: Normal Grayscale, color Doppler, spectral Doppler imaging performed of the carotid arteries. Waveform analys is shows elevated ICA to CCA ratio on the left with borderline increased velocity in the proximal int ernal carotid artery. No significant stenosis seen. Mildly elevated left ICA as compared to CCA. Mode rate shadowing plaque note, left greater than right. IMPRESSION: No hemodynamic significant stenosis of the proximal internal carotid arteries bilaterall y is suspected by Doppler criteria, an indirect measurement of carotid stenosis. There is an elevated ratio with atheromatous change as described at the carotid bulb on the left, carotid CTA could be pe rformed for additional evaluation. Findings may approach 50-69% diameter stenosis of the proximal int ernal carotid artery on the left by Doppler criteria for follow-up suggested. Criteria for Assigning % of Stenosis / Diameter reduction (Estimation based on the indirect measurements of the internal carotid artery velocities (ICA PSV). 1. Normal (no stenosis)=ICA PSV < 125 cm/s: ratio < 2.0: ICA EDV<40 cm/s. 2. Less than 50% stenosis=ICA PSV < 125 cm/s: ratio < 2.0: ICA EDV<40 cm/s. 3. 50 to 69% stenosis=ICA PSV of 125 to 230 cm/s: ration 2.0 ? 4.0: ICA EDV 40-100 cm/s. 4. Greater than 70% stenosis to near occlusion= ICA PSV > 230 cm/s: ratio > 4.0: ICA EDV > 100 cm/s. 5. Near occlusion= ICA PSV velocities may be low or undetectable: variable ratio and ICA EDV. 6. Total occlusion=unable to detect flow.
--- NOTE | 2020-06-21 14:03 | P.PN ---
Subjective 89-year-old female one of my office patient who has been in [facility] for the last few month, patient is known to have history of advanced dementia, hypertension, hyperlipidemia and hypothyroidism patient is memory has been getting much worse her mobility has been significantly decrease dependency has been worse. Patient has not had much urine output last 2 days with no feeling of going to the bathroom she developed to have worsening altered mental status along with left-sided worsening weakness compared to before with the current symptom family decided to bring patient to demurs department at [facility] where was seen and evaluated her CT of the brain originally shows similar generalized atrophy including central cerebral atmosphere mild Eleanor of the chronic small vessel disease. UA was slightly but positive white blood cell was not elevated her kidney function remained good blood sugar was mildly elevated. Patient was started on hydration continue to have slight weakness in the left side along with significant altered mental status, we'll consult neurology continue neuro exam every shift admit patient to the hospital further workup will be done. 06/21: Patient evaluated today, resting in bed comfortably, no acute distress. Patient continues to be mildly confused. Patient was evaluated by neurology. Recommends CT of the lumbar spine for lower extremity weakness, along with carotid ultrasound, echocardiogram. Did not feel MRI was needed due to no focal weakness. CT lumbar spine showed multilevel degenerative disc disease with multilevel central stenosis. Echocardiogram pending, will consult physical therapy for possible subacute rehab upon discharge. Objective - Vital Signs Vital signs: Vital Signs Temp 97.4 F L 06/21/20 11:00 Pulse 54 L 06/21/20 11:00 Resp 16 06/21/20 11:00 BP 145/80 06/21/20 11:00 Pulse Ox 96 06/21/20 11:00 Intake & Output 06/20/20 06/21/20 06/21/20 18:59 06:59 18:59 Weight 83.915 kg - Exam General Appearance: Alert, cooperative, no distress, appears stated age. Neck HEENT: Supple, no lymphadenopathy, no thyroid enlargement, no carotid bruits. Lungs: Clear to auscultation without crackles or wheezes no rhonchi, no deformity. Chest Wall: Chest wall normal expansion with deep inspiration no tenderness and no deformity was found on exam, no costochondral pain or discomfort. Heart: Regular rate and rhythm, S1, S2 normal, no murmur, rub or gallop. Back: Symmetric, no curvature, ROM normal, no CVA tenderness. Abdomen: Soft, non-tender, bowel sounds active all four quadrants, no masses, no organomegaly. Extremities: Extremities normal, atraumatic, no cyanosis or edema. Pulses: 2+ and symmetric. Skin: Skin color, texture, tugor normal, no rashes or lesions. Neurologic: Alert oriented with slight confusion, cranial nerves II through XII intact, slight weakness in the left more than the right with severe abnormal balance and gait. - Labs CBC & Chem 7: 06/20/20 14:25 06/20/20 14:25 Labs: Abnormal Lab Results - Last 24 Hours (Table) 06/20/20 06/20/20 Range/Units 14:25 14:25 Sodium 136 L (137-145) mmol/L Chloride 108 H (98-107) mmol/L Carbon Dioxide 21 L (22-30) mmol/L BUN 21 H (7-17) mg/dL Glucose 159 H (74-99) mg/dL Total Protein 5.8 L (6.3-8.2) g/dL Albumin 3.2 L (3.5-5.0) g/dL Urine Protein Trace H (Negative) Ur Leukocyte Esterase Small H (Negative) Urine Bacteria Rare H (None) /hpf Urine Mucus Rare H (None) /hpf Microbiology - Last 24 Hours (Table) 06/20/20 14:25 Urine Culture - Preliminary Urine,Catheterized Assessment and Plan Plan: 1 change in mental status: Combination of encephalopathy from UTI, stroke, hypertension or other infection. Continue to treat underlying disease neuro consultation continue current management. 2 possible CVA with left-sided weakness, CT of the brain was not suggested originally consult neurology to see if for patient's best interest to go for an MRI of the brain along with carotid and echo. 3 recurrent UTI and sepsis: UA was slightly but positive, waiting for culture results patient will be started on Rocephin 1 g daily. 4 hypertension: Remain well controlled on spironolactone 25 mg daily. 5 advance dementia: Mostly Alzheimer disease has been on Aricept 10 mg twice a day, and Namenda 5 mg twice a day also still using Remeron 7.5 mg daily at bedtime. 6 hypothyroidism: Continue patient on levothyroxine 50 g daily. 7 depression: Has been on Cymbalta 30 mg a day along with BuSpar 5 mg twice a day and respiratory done 0.5 mg twice a day. 8 hyperlipidemia: Remain on atorvastatin 20 mg every other day. 9 debility: Not been able to ambulate and walk, was start PTOT and patient might require further help and aid not been able to be provided at [facility]. 10 hyperglycemia: Continue patient on Accu-Chek with sliding scales coverage. 11 GI prophylaxis: Continue patient on Pepcid daily. 12 DVT prophylaxis: Patient will be on heparin subcutaneous. CODE STATUS: DO NOT RESUSCITATE. Admit patient to inpatient service for more than 2 night stay. The above impression and plan of care have been discussed and directed by signing physician. Malgorzata Santos nurse practitioner acting as scribe for signing physician.
[2020-06-21 17:17] LABS: Glucose,Whole Blood 103 mg/dL (75-99)
[2020-06-21 20:42] LABS: Glucose,Whole Blood 109 mg/dL (75-99)
[2020-06-21] MEDS ORDERED: MIRTAZAPINE 15 MG TAB PO SCH (21:00)
[2020-06-21] MEDS ORDERED: MELATONIN 5 MG TABLET PO SCH (21:00)
[2020-06-21 22:30] LABS: Chol/HDL Ratio 3.18; LDL Cholesterol,Calculated 85.2 mg/dL (0.0-131.0); VLDL Calculation 23.8 mg/dL (5.00-40.00)
[2020-06-22 01:56] LABS: Glucose,Whole Blood 80 mg/dL (75-99)
[2020-06-22 02:05] VITALS: RESP 20
[2020-06-22 07:57] LABS: Glucose,Whole Blood 99 mg/dL (75-99)
[2020-06-22] MEDS ORDERED: CYANOCOBALAMIN 1,000 MCG/ML 1 ML VIAL IM SCH (09:00)
[2020-06-22] MEDS: ASPIRIN 325 MG TAB PO SCH (09:27)
[2020-06-22] MEDS: LEVOTHYROXINE 50 MCG TAB PO SCH (09:27)
[2020-06-22] MEDS: ASCORBIC ACID 500 MG TAB PO SCH (09:28)
[2020-06-22] MEDS: SPIRONOLACTONE 25 MG TAB PO SCH (09:28)
[2020-06-22] MEDS: busPIRone HCl 5 MG TAB PO SCH (09:28)
[2020-06-22] MEDS: CHOLECALCIFEROL 1,000 UNIT TAB PO SCH (09:28)
[2020-06-22] MEDS: DONEPEZIL 10 MG TAB PO SCH (09:29)
[2020-06-22] MEDS: PANTOPRAZOLE 40 MG TABLET PO SCH (09:29)
[2020-06-22] MEDS: acetaZOLAMIDE 250 MG TAB PO SCH (10:10)
[2020-06-22] MEDS: OXYBUTYNIN XL 5 MG TAB.ER.24 PO SCH (10:11)
[2020-06-22] MEDS: MEMANTINE 5 MG TAB PO SCH (10:11)
[2020-06-22] MEDS: risperiDONE 0.5 MG TAB PO SCH (10:12)
[2020-06-22] MEDS: TIMOLOL 0.5% OPHTH DROPS 5 ML BTL BOTH EYES SCH (10:13)
[2020-06-22] MEDS ORDERED: CLOPIDOGREL 75 MG TAB PO SCH (10:15)
--- NOTE | 2020-06-22 10:57 | ECHOF ---
Referral Reason:stroke MEASUREMENTS -------- HEIGHT: 152.4 cm WEIGHT: 83.9 kg BP: IVSd: 0.9 cm (0.6 - 1.1) LVIDd: 2.5 cm (3.9 - 5.3) LVPWd: 1.2 cm (0.6 - 1.1) IVSs: 1.5 cm LVIDs: 0.7 cm LVPWs: 0.9 cm LAESV Index (A-L): 28.88 ml/m Ao Diam: 3.0 cm (2.0 - 3.7) AV Cusp: 1.4 cm (1.5 - 2.6) LA Diam: 3.2 cm (2.7 - 3.8) MV E Yazan: 0.86 m/s MV DecT: 432 ms MV A Yazan: 1.32 m/s MV E/A Ratio: 0.65 RAP: 5.00 mmHg RVSP: 14.10 mmHg FINDINGS -------- This was a technically adequate study. The left ventricular size is normal. There is mild concentric left ventricular hypertrophy. Overa ll left ventricular systolic function is normal with, an EF between 55 - 60 %. Normal LAP Grade 1 D iastolic Dysfunction The right ventricle is normal in size. The left atrial size is normal. Normal LA size by volume 22+/-6 ml/m2. The right atrial size is normal. IAS not well Visualized. The aortic valve is trileaflet and appears structurally normal. The mitral valve is normal. The mitral valve leaflets are mildly thickened. Mild mitral annular c alcification present. Mild mitral regurgitation is present. Moderate mitral stenosis. The tricuspid valve appears structurally normal. Mild tricuspid regurgitation present. Right vent ricular systolic pressure is normal at < 35 mmHg. There is no pulmonic regurgitation present. The aortic root size is normal. Normal inferior vena cava with normal inspiratory collapse consistent with estimated right atrial pre ssure of 5 mmHg. There is a trivial pericardial effusion present. CONCLUSIONS -------- 1. The left ventricular size is normal. 2. There is mild concentric left ventricular hypertrophy. 3. Overall left ventricular systolic function is normal with, an EF between 55 - 60 %. 4. Normal LAP Grade 1 Diastolic Dysfunction 5. The mitral valve leaflets are mildly thickened. 6. Mild mitral annular calcification present. 7. Mild mitral regurgitation is present. 8. Moderate mitral stenosis. 9. Mild tricuspid regurgitation present. 10. There is a trivial pericardial effusion present. BILINGUAL PATIENT SUPPORT CASEWORKER: Julita Llanes RDCS
[2020-06-22 11:27] LABS: Glucose,Whole Blood 78 mg/dL (75-99)
[2020-06-22] MEDS: ZINC SULFATE 220 MG CAP PO SCH (11:29)
[2020-06-22] MEDS: DULoxetine HCL 30 MG CAPSULE.DR PO SCH (11:29)
--- NOTE | 2020-06-22 11:59 | P.PN ---
Subjective Progress Note Date: 06/22/20 Patient was seen at bedside and she stated that she's doing well. She feels about the same today compared to yesterday. She denies any new weakness, numbness or visual disturbance. Objective - Vital Signs Vital signs: Vital Signs Temp 98.4 F 06/22/20 07:00 Pulse 71 06/22/20 07:00 Resp 20 06/22/20 07:00 BP 171/84 06/22/20 07:00 Pulse Ox 100 06/22/20 07:00 Intake & Output 06/21/20 06/22/20 06/22/20 18:59 06:59 18:59 Other: Voiding Method Incontinent Incontinent # Voids 2 - Exam GENERAL: The patient is lying in bed and is not in acute distress. NEUROLOGICAL: Higher mental function: The patient is awake, alert, oriented to self only. For the place she correctly chose the name of place with options. Not oriented to year (is at baseline oriented to X1 and sometimes place). Patient is following simple commands. No aphasia and no neglect. Cranial nerves: The pupils are round, equal and reactive to light. Visual mariscal are full to confrontation throughout. Extraocular movement is able to track me throughout room and no nystagmus seen. Facial sensation is normal to touch throughout. The facial strength is normal throughout. Hearing is moderately decreased bilaterally to hand rub. Tongue is midline and moved [id number] without any difficulty. No dysarthria is noted. Motor: Gait is deferred. The strength is limited because of the patient cooperation but and was able to lift of bilateral upper extremities symmetrically above gravity and affect the strength was as at least 4/5. While bilateral lower extremity I felt the proximally it was the 3/5 bilaterally and distally it was the 4/5 bilaterally. Normal tone and bulk. Cerebellum: Unable to assess because of cooperation. Sensation: Sensation is normal to touch throughout. Reflexes (right/left): 2+ throughout bilateral upper extremities while 1+ bilateral lower extremities. Plantars are downgoing bilaterally. - Labs CBC & Chem 7: 06/20/20 14:25 06/20/20 14:25 Labs: Abnormal Lab Results - Last 24 Hours (Table) 06/21/20 06/21/20 Range/Units 17:07 20:40 POC Glucose (mg/dL) 103 H 109 H (75-99) mg/dL Microbiology - Last 24 Hours (Table) 06/20/20 14:25 Urine Culture - Final Urine,Catheterized Assessment and Plan Assessment: This is a 89-year-old woman that presented to the emergency department because of the weakness for the past 5 days. Per family, they feel her left lower ex tremity is weaker than the right. She has become a 2 person assist compared to one person assist at the assisted living facility. He also has decreased urine output as well as oral intake with worsening of the medication Weakness bilateral lower extremities for the last 2-5 days (Per team left side weakness but on examination no focal weakness and felt bilateral lower extremity > upper extremities). Because of the spinal stenosis from L2 to S1 but predominantly felt that was from L3 to S1 I feel like there is a impingement on the spinal cord as a result. Patient does not have a stroke from the examination I feel her localization area is a lumbar/sacral region. Vitamin B12 deficiency Advance Dementia Bilateral hearing loss (moderate in severity) Recurrent urinary tract infections Hyperlipidemia Hypertension Hypothyroidism Plan: * CT of the lumbar without is reported as altered level degenerative disc disease with multilevel central stenosis. In the body of the reports and mentioned that the patient has vacuum disc identified over the L2-L3. Posterior disc bulge. Grade 1 retrolisthesis of bowel 2 on L3 all 4 mm. Effacement of ventral thecal sac with borderline central stenosis. Bilateral foraminal encroachment. Ventral spondylosis. Over the L3-L4 there is also hypertrophy ligamentum flavum and facet joint arthropathic a resulting in moderate central stenosis. Bilateral foraminal encroachment identified. L4- L5 there is a grade 1 anterolisthesis of L4 and L5 4 millimeters. Posterior disc bulge. Postsurgical changes of the right hemilaminectomy. I cannot exclude recurrent central stenosis as her appears to be moderate constriction at this level. Bilateral foraminal encroachment. Over L5-S1 it's reported as grade 1 antral lithiasis of L5 and S1 measuring 5 mm. Posterior disc bulge with effacement of the ventral thecal sac and the bilateral recess stenosis in the central stenosis. Bilateral foraminal encroachment. * The patient daughter does not want any surgical intervention or orthopedic to be involved regarding her lower back. * Regarding the carotid duplex was reported as no hemodynamic significant stenosis of the proximal internal carotid arteries bilaterally is suspected Doppler criteria, and in direct measurement of carotid stenosis. There is an elevated ratio with atheromatous change described at the carotid bulb on the left, carotid CT angiography could be performed for additional evaluation. Finding may approach 50-69% diameter stenosis of the proximal right internal carotid artery on the left Doppler criteria for follow-up suggested. * I spoke with the patient's daughter regarding the carotid duplex finding and she does not want any further imaging such as CT angiography of the head and neck. * Therefore the patient was on aspirin 325 I discontinued the aspirin 325 and I started aspirin 81 and Plavix 75 mg. I also increased the Lipitor from 20 mg every 4 hours to rule out 40 mg daily. The daughter stated that patient has muscle cramps that's why I avoided that 80 mg of Lipitor. * Physical therapy and occupation therapy are consulted. * Patient vitamin B12 is 207 which is considered low. Therefore I started the patient on vitamin B-12 intramuscular for 3 days and that can be switched over to oral. * 2-D echo is reported as overall left ventricle systolic function is normal with ejection fraction of 55-60%. Moderate mitral stenosis. Mild mitral regurgitation is noted. * Lipid panel as triglyceride of 119, cholesterol is 159, LDL of 85, HDL 50. * Folate is pending. * Patient had a TSH on 01/14/2020 at which is 0.644 which is within normal limits. Therefore there is no need to repeat it. * She does not need MRI of the brain since there is no focal deficits and and her weakness of bilateral lower extremity is stemming from the lumbar sacral region. Also she can have generalized weakness from mild low vitamin B12 deficiency. * Regarding her advanced dementia the patient is on Aricept 10 mg 1 tablet twice a day as well as memantine 5 mg 1 tablet twice a day and Remeron 7.5m qhs. * She is on melatonin 5 mg daily at bedtime. * Regarding patient agitation and she is on risperidone 0.5 mg 1 tablet twice a day. Currently the patient is not agitated. * She is on the Acetazolamide 125 mg 1 tablet twice a day and not sure for what. * Upon discharge recommend that patient to follow-up with a neurologist was in the 2-3 weeks. The plan was discussed with the patient daughter (Suzette) via phone and to the patient's nurse (again the patient daughter does not want any surgical intervention). Jcarlos Rizzo M.D. Neuro-hospitalist Time with Patient: Less than 30
--- NOTE | 2020-06-22 13:44 | CDI ---
Documentation Clarification Form Date: 06/22/2020 01:21:05 PM From: Catina Luna RN CCDS Admit Date: 06/20/2020 04:24:00 PM Patient Name: Saeed Mejia Visit Number: [id number] Discharge Date: ATTENTION: The Clinical Documentation Specialists (CDI) and [facility] Coding Staff appreciate your assistance in clarifying documentation. Please respond to the clarification below the line at the bottom and electronically sign. The CDI & [facility] Coding staff will review the response and follow-up if needed. Please note: Queries are made part of the Legal Health Record. If you have any questions, please contact the author of this message via ITS. Dr. Milton Adkins Recurrent UTI and sepsis is documented in the H&P 06/20 and progress note 06/21 History/Risk Factors: 89-year-old female presents to the ED from ECF with low urine output, worsening altered mental status and left sided weakness. Medical history: Dementia; Hyperlipidemia; Thyroid disease and Uti Clinical Indicators: WBC 06/20: 8.0 UA 06/20: protein trace; leukocyte esterase small; bacteria rare; mucus rare Urine culture 06/20: No growth after 18 hours Vitals signs on admission 06/20: B/P 138/86; HR 86; Temp 97.5 F Oral; RR 18; SpO2 97% ra Treatment: Antibiotics: 06/21 Ceftriaxone Ivpb Q24H IV Bolus: 06/20 0.9ns IV 500cc/bolus In your professional opinion, please clarify if these findings signify one of the following conditions, and cause, if known: Sepsis ruled out Sepsis poa Other, please specify xxUnable to determine Identify the (suspected) organism SIRS Criteria (2 or more of the following may indicate SIRS): -Temperature < 96.8F (36C) or > 101.0F (38.3C) -Heart Rate > 90 bpm -Respiratory Rate > 20 breaths/min or PaCO2 < 32 mmHg -White Blood Cell Count > 12,000 or < 4,000 cells/mm3 or > 10% bands -Lactate >2.0 mmol/L (>4.0 is equivalent to septic shock) (Last Revision: September 2017) MTDD
[2020-06-22 14:26] VITALS: PULSE 62
--- NOTE | 2020-06-22 14:27 | P.DS ---
Providers Date of admission: 06/20/20 16:24 Expected date of discharge: 06/22/20 Attending physician: Milton Adkins Consults: 06/20/20 16:24 Consult Physician Routine Consulting Provider: Jcarlos Rizzo Consult Reason/Comments: L leg weakness x days Do you want consulting provider notified?: Yes Primary care physician: Milton Jed [facility] Course: 89-year-old female one of my office patient who has been in [facility] for the last few month, patient is known to have history of advanced dementia, hypertension, hyperlipidemia and hypothyroidism patient is memory has been getting much worse her mobility has been significantly decrease dependency has been worse. Patient has not had much urine output last 2 days with no feeling of going to the bathroom she developed to have worsening altered mental status along with left-sided worsening weakness compared to before with the current symptom family decided to bring patient to demurs department at [facility] where was seen and evaluated her CT of the brain originally shows similar generalized atrophy including central cerebral atmosphere mild Kingsley of the chronic small vessel disease. UA was slightly but positive white blood cell was not elevated her kidney function remained good blood sugar was mildly elevated. Patient was started on hydration continue to have slight weakness in the left side along with significant altered mental status, we'll consult neurology continue neuro exam every shift admit patient to the hospital further workup will be done. 06/21: Patient evaluated today, resting in bed comfortably, no acute distress. Patient continues to be mildly confused. Patient was evaluated by neurology. Recommends CT of the lumbar spine for lower extremity weakness, along with carotid ultrasound, echocardiogram. Did not feel MRI was needed due to no focal weakness. CT lumbar spine showed multilevel degenerative disc disease with multilevel central stenosis. Echocardiogram pending, will consult physical therapy for possible subacute rehab upon discharge. 06/22: Patient evaluated today, she still noted to be confused, unchange from yesterday. Carotid duplex showed possible 50-69% stenosis of the right proximal ICA, according to neurology notes daughter does not want any further testing with CTA neurology has discontinued aspirin 325 started aspirin 81 mg along with Plavix and increase Lipitor from 20 mg to 40 mg. B12 is noted to be low, she was started on oral supplements. Patient will be transferred to subacute rehab today. Discharge diagnoses 1 change in mental status 2 possible CVA with left-sided weakness 3 recurrent UTI and sepsis 4 hypertension 5 advance dementia 6 hypothyroidism 7 depression 8 hyperlipidemia 9 debility 10 hyperglycemia The above impression and plan of care have been discussed and directed by signing physician. Malgorzata Santos nurse practitioner acting as scribe for signing physician. Plan - Discharge Summary New Discharge Prescriptions: New Aspirin 81 mg PO DAILY chew Cefuroxime [Ceftin] 250 mg PO BID 5 Days #10 tab Atorvastatin [Lipitor] 40 mg PO HS tab Clopidogrel [Plavix] 75 mg PO DAILY tab Continue Spironolactone 25 mg PO DAILY Levothyroxine Sodium [Synthroid] 50 mcg PO DAILY DULoxetine HCL [Cymbalta] 30 mg PO DAILY Omeprazole Magnesium [PriLOSEC OTC] 20 mg PO DAILY busPIRone HCl [Buspar] 5 mg PO BID Tolterodine Tartrate [Detrol LA] 4 mg PO DAILY Timolol 0.5% Ophth Soln [Timoptic 0.5% Ophth Soln] 1 drop BOTH EYES DAILY acetaZOLAMIDE [Diamox] 125 mg PO BID Melatonin 5 mg PO HS Memantine [Namenda] 5 mg PO BID #60 tab risperiDONE 0.5 mg PO BID #60 tab Mirtazapine [Remeron] 7.5 mg PO HS #30 tab Wheat Dextrin [Benefiber] 1 packet PO TID@0800,1200,1600 Donepezil HCl [Aricept] 10 mg PO BID Atorvastatin [Lipitor] 20 mg PO Q48H Zinc 50 mg PO DAILY Cholecalciferol [Vitamin D3 (25 Mcg = 1000 Iu)] 2,000 unit PO DAILY Albuterol Inhaler [Ventolin Hfa Inhaler] 2 puff INHALATION RT-Q4H PRN PRN Reason: Shortness Of Breath Ascorbic Acid [Vitamin C] 1,000 mg PO DAILY Calcium Carbonate [Tums] 1,000 mg PO TID PRN PRN Reason: Heartburn Hydrocortisone Oint [Hydrocortisone 1% Oint] 1 applic PO BID PRN PRN Reason: itchy areas of skin Menthol/Zinc Oxide [Calmoseptine Ointment] 1 applic TOPICAL DAILY PRN PRN Reason: Rash Bisacodyl 5 mg PO BID PRN PRN Reason: Constipation Nystatin 100,000 Unit/gm Powd [Mycostatin Powder] 1 applic TOPICAL BID PRN PRN Reason: fungal infection Discontinued Aspirin 325 mg PO DAILY Discharge Medication List DULoxetine HCL [Cymbalta] 30 mg PO DAILY 01/14/20 [History] Levothyroxine Sodium [Synthroid] 50 mcg PO DAILY 01/14/20 [History] Omeprazole Magnesium [PriLOSEC OTC] 20 mg PO DAILY 01/14/20 [History] Spironolactone 25 mg PO DAILY 01/14/20 [History] Timolol 0.5% Ophth Soln [Timoptic 0.5% Ophth Soln] 1 drop BOTH EYES DAILY 01/14/20 [History] Tolterodine Tartrate [Detrol LA] 4 mg PO DAILY 01/14/20 [History] acetaZOLAMIDE [Diamox] 125 mg PO BID 01/14/20 [History] busPIRone HCl [Buspar] 5 mg PO BID 01/14/20 [History] Melatonin 5 mg PO HS 01/15/20 [History] Memantine [Namenda] 5 mg PO BID #60 tab 01/16/20 [Rx] Mirtazapine [Remeron] 7.5 mg PO HS #30 tab 01/16/20 [Rx] risperiDONE 0.5 mg PO BID #60 tab 01/16/20 [Rx] Albuterol Inhaler [Ventolin Hfa Inhaler] 2 puff INHALATION RT-Q4H PRN 06/20/20 [History] Ascorbic Acid [Vitamin C] 1,000 mg PO DAILY 06/20/20 [History] Atorvastatin [Lipitor] 20 mg PO Q48H 06/20/20 [History] Bisacodyl 5 mg PO BID PRN 06/20/20 [History] Calcium Carbonate [Tums] 1,000 mg PO TID PRN 06/20/20 [History] Cholecalciferol [Vitamin D3 (25 Mcg = 1000 Iu)] 2,000 unit PO DAILY 06/20/20 [History] Donepezil HCl [Aricept] 10 mg PO BID 06/20/20 [History] Hydrocortisone Oint [Hydrocortisone 1% Oint] 1 applic PO BID PRN 06/20/20 [History] Menthol/Zinc Oxide [Calmoseptine Ointment] 1 applic TOPICAL DAILY PRN 06/20/20 [History] Nystatin 100,000 Unit/gm Powd [Mycostatin Powder] 1 applic TOPICAL BID PRN 06/20/20 [History] Wheat Dextrin [Benefiber] 1 packet PO TID@0800,1200,1600 06/20/20 [History] Zinc 50 mg PO DAILY 06/20/20 [History] Aspirin 81 mg PO DAILY chew 06/22/20 [Rx] Atorvastatin [Lipitor] 40 mg PO HS tab 06/22/20 [Rx] Cefuroxime [Ceftin] 250 mg PO BID 5 Days #10 tab 06/22/20 [Rx] Clopidogrel [Plavix] 75 mg PO DAILY tab 06/22/20 [Rx] Follow up Appointment(s)/Referral(s): Milton Adkins MD [Primary Care Provider] - 1-2 days
[2020-06-22 15:19] VITALS: BP 171/72; TEMP 97.6
[2020-06-22] MEDS ORDERED: ATORVASTATIN 40 MG TAB PO SCH (21:00)
[2020-06-23] MEDS ORDERED: ASPIRIN 81 MG PO SCH (09:00)
== END 2020-06-22 17:20 | DRG 64 ==
LOC: EC 12:56 → 4SSUR 16:24 → 6NMEDSUR 06-21 06:32 → 5NMEDONC 06-21 15:37
PROVIDERS: ADMIT Internal Medicine Geriatric Medicine; ATTEND Internal Medicine Geriatric Medicine
DX: I63.9 Cerebral infarction, unspecified (principal); G93.41 Metabolic encephalopathy; G81.94 Hemiplegia, unspecified affecting left nondominant side; N39.0 Urinary tract infection, site not specified; I10 Essential (primary) hypertension; H91.93 Unspecified hearing loss, bilateral; Z66 Do not resuscitate; E78.5 Hyperlipidemia, unspecified; F02.80 Dementia in other diseases classified elsewhere, unspecified severity, without behavioral disturbance, psychotic disturbance, mood disturbance, and anxiety; E03.9 Hypothyroidism, unspecified; R53.81 Other malaise; F32.9 Major depressive disorder, single episode, unspecified; R73.9 Hyperglycemia, unspecified; E53.8 Deficiency of other specified B group vitamins; I73.9 Peripheral vascular disease, unspecified; M48.061 Spinal stenosis, lumbar region without neurogenic claudication; M51.36 Other intervertebral disc degeneration, lumbar region; G30.9 Alzheimer's disease, unspecified; Z79.82 Long term (current) use of aspirin; Z79.890 Hormone replacement therapy; Z79.899 Other long term (current) drug therapy; Z87.891 Personal history of nicotine dependence; Z87.440 Personal history of urinary (tract) infections; Z82.5 Family history of asthma and other chronic lower respiratory diseases
CPT/HCPCS: 36415; 70450; 71046; 72131; 80053; 80061; 81001; 82607; 82747; 83735; 83880; 84484; 85025; 85610; 85730; 87086; 93005; 93306; 93880; 96361; 96365; 99285